=== PATIENT | male | born 1960 | race Caucasian/White ===

== ENCOUNTER 2018-01-05 06:11 | Emergency (ER) | payer OTHER ==
[~2018-01-05] VITALS: Ht 180.3 cm; Wt 131.8 kg
[~2018-01-05 06:11] MED LIST: AMLO-110 PO; ASPCH81 PO; BUPR-83 PO; CLON0.5T3 PO; CYAN100020 PO; PRLSR20 PO; SIMV80TA2 PO; TRAZ-119 PO; [UNRECOGNIZED DRUG - CODE] PO
[2018-01-05 06:14] VITALS: TEMP 36.5; Ht 180.3 cm; Wt 131.8 kg
[2018-01-05] MEDS ORDERED: ATOR-24 PO (06:28)
[2018-01-05] MEDS ORDERED: KETOROLAC TROMETHAMINE 60 MG/2 ML VIAL IM STA (07:02)
[2018-01-05] MEDS ORDERED: ONDA4TAB10 SL (07:08)
[2018-01-05] MEDS ORDERED: NAPR-1169 PO (07:08)
--- NOTE | 2018-01-05 07:09 | EMERGENCY ROOM VISIT NOTE ---
History Report prepared by Brian: Marylin Toth Under the Supervision of: Dr. Andrew Dunham D.O. First contact with patient: 06:39 Chief Complaint: FOOT PAIN Stated Complaint: POSSIBLE GOUT LEFT GREAT TOE History of Present Illness The patient is a 57 year old male who presents to the Emergency Room with complaints of constant throbbing left big toe pain beginning this morning at 3 am. The patient believes he has gout. The patient has a history of gout. He reports he has a gout attack about every 3-4 months. He rates his pain as a 6/ 10. The patient also notes nausea and a difficulty walking. The patient reports he [facility] an [facility] later this [facility]. Source of History: patient Onset: 3 am Position: toe(s) Symptom Intensity: 6/10 Quality: other (throbbing) Timing: constant Associated Symptoms: + nausea Review of Systems See HPI for pertinent positives & negatives. A total of 10 systems reviewed and were otherwise negative. Past Medical & Surgical Medical Problems: (1) Anxiety State Nos (2) Bilateral retinal detachment (3) Depressive Disorder Nec (4) Esophageal Reflux (5) Gout (6) Hypertension Nos (7) Personal History Of Urinary Calculi (8) Psoriasis Surgical Problems: (1) Previous back surgery Family History FH: cancer FH: diabetes mellitus FH: heart disease FH: hypertension Social History Smoking Status: Never Smoker Alcohol Use: none Marital Status: single Housing Status: lives alone Occupation Status: employed Current/Historical Medications Scheduled Amlodipine (Norvasc), 5 MG PO QAM Aspirin (Aspirin Tab-Chewable *), 1 TAB PO HS Atorvastatin (Lipitor), 40 MG PO DAILY Bupropion (Wellbutrin), 100 MG PO BID Cyanocobalamin (Vitamin B12), 1,000 MCG PO QAM Lisinopril/Hctz (Prinzide 25-20MG *), 1 TAB PO QAM Omeprazole (Prilosec), 20 MG PO QAM Trazodone Hcl (Desyrel), 50 MG PO HS Scheduled PRN Clonazepam (Klonopin), 0.5 MG PO BID PRN for Anxiety Allergies Coded Allergies: No Known Allergies (Unverified , 01/05/18) Physical Exam Vital Signs Date Time Temp Pulse Resp B/P (MAP) Pulse Ox O2 Delivery O2 Flow Rate FiO2 01/05/18 06:14 36.5 59 18 169/83 95 Room Air Physical Exam CONSTITUTIONAL/VITAL SIGNS: Reviewed / noted above. GENERAL: Non-toxic in appearance. INTEGUMENTARY: Warm, dry, and [place]. HEAD: Normocephalic. EYES: without scleral icterus or trauma. ENT/OROPHARYNX: clear and moist. LYMPHADENOPATHY/NECK: Is supple without lymphadenopathy or meningismus. RESPIRATORY: Lungs clear and equal. CARDIOVASCULAR: Regular rate and rhythm. GI/ABDOMEN: Soft and nontender. No organomegaly or pulsatile mass. No rebound or guarding. Normal bowel sounds. EXTREMITIES: Warm and well perfused. Redness and tenderness to the left, first MTP joint. BACK: No CVA tenderness. NEUROLOGICAL: Intact without focal deficits. PSYCHIATRIC: normal affect. MUSCULOSKELETAL: Normally developed with good muscle tone. Medical Decision & Procedures ED Course 0656: Previous medical records were reviewed. The patient was evaluated in room A4B. A complete history and physical examination was performed. 0704: Toradol 60mg IM & Zofran 4mg ODT Medical Decision Differential diagnoses include: gout, infection, trauma. This is a 57-year-old male who presents to the ED with a chief complaint of gout. The patient reports a history of this. He states that last night he developed discomfort in his left great toe. He did take some ibuprofen. The patient has no additional complaints. His exam reveals some redness and tenderness over the first MTP joint of the left foot. This is consistent with Protegra. No other abnormal findings. He was given Toradol IM and Zofran ODT as he had some nausea. He was felt to be stable for discharge on Naprosyn. He will follow-up with his PCP. Medication Reconcilliation Current Medication List: was personally reviewed by me Impression Primary Impression: Gout Scribe Attestation The scribe's documentation has been prepared under my direction and personally reviewed by me in its entirety. I confirm that the note above accurately reflects all work, treatment, procedures, and medical decision making performed by me. Departure Information Dispostion Home / Self-Care Prescriptions Ondasetron Odt (ZOFRAN ODT) 4 Mg Tab 4 MG SL Q6H for Nausea, #15 TAB Prov: Andrew Dunham D.O. 01/05/18 Naproxen (Naprosyn) 500 Mg Tab 500 MG PO BID, #20 TAB Prov: Andrew Dunham D.O. 01/05/18 Referrals No Doctor, Assigned (PCP) Patient Instructions My [facility] Additional Instructions Naprosyn as prescribed. Zofran: Allow one tablet to dissolve under the tongue every 6 hours as needed for nausea or vomiting. Follow-up with your doctor for recheck and additional therapy for chronic treatment of gout.
[2018-01-05] MEDS ORDERED: ONDANSETRON 4MG OD TAB PO ONE (07:15)
[2018-01-05 07:30] VITALS: BP 171/85; PULSE 70; O2SAT 96
== END 2018-01-05 07:30 | disposition home or self-care (01) ==
LOC: C.EDB 06:13 → C.EDA 07:30
DX: M10.9 Gout, unspecified (principal); R11.0 Nausea; I10 Essential (primary) hypertension; Z79.82 Long term (current) use of aspirin; F32.9 Major depressive disorder, single episode, unspecified

== ENCOUNTER 2024-04-14 11:06 | Inpatient (IN) ==
--- OUTSIDE RECORDS SUMMARY | 2024-04-14 11:13 | External Medical Summary | Summary of Care ---
Author Name Unknown Organization [facility] Address [address] [facility] [place] [address] Phone [phone] Care Team Providers Care Pump Stitcher Name Role Phone Aaliyah Toure PA-C Primary Care Provider [phone] Reason for Visit * Auth/Cert Specialty Diagnoses / Procedures Referred By Elizabeth t Referred To Contact Diagnoses History of colonic polyps History of colonic polyps [Z86.010] Procedures COLONOSCOPY, DIAGNOSTIC (RECTUM) COLONOSCOPY FLEXIBLE PROXIMAL DIAGNOSTIC Referral ID Status Reason Start Date Expiration Date Visits Re quested Visits Authorized [id number] Encounter Details Date Type Department Care Team (Latest Contact Info) Description 11/09/2023 8:56 AM EST - 11/09/2023 10:33 AM [facility] Hospital Encounter ENDO [facility], Endoscopy Room [facility] [address] [facility] [place] [id number] Tia Spence MD [address] [place] [address] [place] [address] Colonoscopy Discharge Disposition: Home - Self Care Allergies Active Allergy Reactions Criticality Noted Date Comments Lactose 03/31/2021 Sertraline Hcl Diarrhea 12/23/2008 Other reaction(s): Impotence documented as of this encounter (statuses as of 11/09/2023) Medications Medication Sig Dispensed Refills Start Date End Date Status OMEPRAZOLE 20 MG PO CPDR One pill by mouth once a day 1 hour before the first meal of the day 30 5 09/09/2008 Active AMLODIPINE BESYLATE 5 MG PO TABS Take 2 Tablets by mouth. 0 Active ASPIRIN 81 MG PO TABS one by mouth once a day 30 Tab 0 12/13/2011 Active Escitalopram Oxalate 20 MG Oral Tablet (LEXAPRO) Take 1 Tablet by mouth in the morning. 0 Active Lisinopril 20 MG Oral Tablet (PRINIVIL) Take 2 Tablets by mouth in the morning. 0 Active Atorvastatin Calcium 40 MG Oral Tablet (LIPITOR) Take 2 Tablets by mouth at bedtime. 0 Active Meclizine HCl 12.5 MG Oral Tablet (Antivert) Take 1 Tablet by mouth as needed. 0 Active BiPAP every night at bedtime. 0 Active buPROPion HCl ER (SR) 150 MG Oral Tablet Extended Release 12 Hour (Wellbutrin SR) Take 1 Tablet by mouth in the morning. 30 Tab 5 03/31/2021 Active Vitamin D3 25 MCG Oral Tablet Take by mouth at bedtime. 0 03/31/2021 Active Clobetasol Propionate 0.05 % External Ointment (Temovate) Apply topically to affected area 2 times a day. To affected area for up to two weeks. 30 g 1 03/31/2021 Active Ketoconazole 2 % External Shampoo (Nizoral) Apply topically to affected area every 3 days. Shampoo twice a week 120 mL 1 03/31/2021 Active Sildenafil Citrate 50 MG Oral Tablet Take 1 Tablet by mouth daily as needed for Erectile Dysfunction. 10 Tab 0 03/31/2021 Active traZODone HCl 100 MG Oral Tablet (Desyrel) Take 1 Tablet by mouth at bedtime. 60 Tab 5 03/31/2021 Active documented as of this encounter (statuses as of 11/09/2023) Active Problems Problem Noted Date Diagnosed Date Body mass index (BMI) of 40.0 to 44.9 in adult 0 04/20/2021 Overview: Per Obesity protocol - Per Obesity Protocol, #19 ICD-10 update of inactive diagnosis Retinal edema 02/06/2010 Retinal detachment with retinal defect 9 GERD (gastroesophageal reflux disease) Dyslipidemia, goal to be determined HTN, goal below 140/90 Sleep apnea documented as of this encounter (statuses as of 11/09/2023) Resolved Problems Problem Noted Date Diagnosed Date Resolved Date Severe obesity with body mas s index (BMI) of 35.0 to 39.9 with serious comorbidity 02/23/2010 Overview: Per Obesity Protocol, #19 ICD-10 update of inactive diagnosis documented as of this encounter (statuses as of 11/09/2023) Immunizations Name Administration Dates Next Due COVID-19 mRNA, LNP-s, No Pre serve, 2-Dose Series (Moderna) 02/12/2022,07/21/2021,10/07/2020, 0 20 Seasonal Influenza, Split, I IV3, With Preserve, Inj 06/16/2012 TDAP (age 10 and older)(Boostrix) 05/04/2022 TDAP (age 11 and older)(Adacel) 12/21/2010 documented as of this encounter Social History Tobacco Use Types Packs/Day Years Used Date Smoking Tobacco: Never Smokeless Tobacco: Never Alcohol Use Standard Drinks/Week Comments No 0 (1 standard drink = 0.6 oz pur e alcohol) maybe 1 drink a week at most Sex and Gender Information Value Date Recorded Sex Assigned at Not on file Gender Identity Not on file Sexual Orientation Not on file Job Start Date Occupation Industry Not on file Not on file Not on file documented as of this encounter Last Filed Vital Signs Vital Sign Reading Time Taken Comments Blood Pressure 130/88 11/09/2023 10:26 AM EST Pulse 57 11/09/2023 10:26 AM EST Temperature 36.1 C (97 F) 11/09/2023 10:26 AM EST Respiratory Rate 16 11/09/2023 10:26 AM EST Oxygen Saturation 97% 11/09/2023 10:26 AM EST Inhaled Oxygen Concentration - - Weight 134.7 kg (297 lb) 11/09/2023 9:22 AM EST Height 180.3 cm (5' 11") 11/09/2023 9:22 AM EST Body Mass Index 41.42 11/09/2023 9:22 AM EST documented in this encounter H&P Notes * Tia Spence MD - 11/09/2023 9:41 AM EST Endoscopy Pre-Procedure Assessment Name: Song Harding Date: 11/09/2023 Time: 9:41 AM Procedure(s): Colonoscopy; with Indication(s) of colon polyp surveillance Endoscopy Pre-Procedure Assessment: Prior to the procedure, the patient is identified. The patient's history, medications and allergieshave been reviewed. The patient is competent. The risks and benefits of the proposed procedure and the planned sedation have been discussed with the patient. All questions have been answered and informed consent for the procedure has been obtained. Prior to Admission medications Medication Sig Last Dose Discont. buPROPion HCl ER (SR) 150 MG Oral Tablet Extended Release 12 Hour (Wellbutrin SR) Take 1 Tablet by mouth in the morning. 11/08/2023 Clobetasol Propionate 0.05 % External Ointment (Temovate) Apply topically to affected area 2 times a day. To affected area for up to two weeks. 11/08/2023 Ketoconazole 2 % External Shampoo (Nizoral) Apply topically to affected area every 3 days. Shampoo twice a week 11/08/2023 Sildenafil Citrate 50 MG Oral Tablet Take 1 Tablet by mouth daily as needed for Erectile Dysfunction. Unknown traZODone HCl 100 MG Oral Tablet (Desyrel) Take 1 Tablet by mouth at bedtime. 11/08/2023 Vitamin D3 25 MCG Oral Tablet Take by mouth at bedtime. 11/08/2023 BiPAP every night at bedtime. 11/08/2023 Atorvastatin Calcium 40 MG Oral Tablet (LIPITOR) Take 2 Tablets by mouth at bedtime. 11/08/2023 Escitalopram Oxalate 20 MG Oral Tablet (LEXAPRO) Take 1 Tablet by mouth in the morning. 11/08/2023 Lisinopril 20 MG Oral Tablet (PRINIVIL) Take 2 Tablets by mouth in the morning. 11/08/2023 ASPIRIN 81 MG PO TABS one by mouth once a day 11/08/2023 AMLODIPINE BESYLATE 5 MG PO TABS Take 2 Tablets by mouth. 11/09/2023 OMEPRAZOLE 20 MG PO CPDR One pill by mouth once a day 1 hour before the first meal of the day 11/09/2023 Meclizine HCl 12.5 MG Oral Tablet (Antivert) Take 1 Tablet by mouth as needed. Patient not taking: Reported on 11/01/2023 Not Taking Review of patient's allergies indicates: Allergen Reactions Lactose Sertraline Hcl Diarrhea Other reaction(s): Impotence BP 151/82 | Pulse 60 | Temp 37.1 C (98.8 F) (Tympanic) | Resp 16 | Ht 1.803 m (5' 11") | Wt 134.7 kg (297 lb) | SpO2 97% | BMI 41.42 kg/m | BSA 2.6 m Physical Exam: Mental Status Examination: alert and oriented. Resp: normal CV: slight bradycardia ASA Grade: II - A patient with mild systemic disease. Abdomen: soft obese large This patient has undergone a preprocedural evaluation. A determination has been made to proceed with the planned procedure under [facility] procedural guidelines and the [facility] Non-Emergent, Elective Medical Services and Treatment Recommendations (published on 12-18-19). The community and hospital prevalence of COVID-19 has been discussed as well as this patient's specific risks associated with SARS-CoV-19 infection. Based upon the clinical acuity and patient-specific care considerations, this procedure is deemed a Tier III - Procedures at little or no risk for clinical deterioration (example - cosmetic). After reviewing the risks and benefits, the patient is deemed in satisfactory condition to undergo the procedure. The anesthesia plan is to use general anesthesia. Tia Spence MD 11/09/2023 documented in this encounter Procedure Notes * Aaliyah Toure PA-C - 11/09/2023 9:40 AM ESTAssociated Order(s): COLONOSCOPY [facility] Patient Name: Song Harding Procedure Date: 11/09/2023 9:40 AM Date of : 1960 Admit Type: Outpatient Note Status: Finalized Date of : 1960 Admit Type: Outpatient Age: 63 Room: [facility] 3 Gender: Male Note Status: Finalized Procedure: Colonoscopy Indications: High risk colon cancer surveillance: personal history of colon polyps Providers: Tia Spence MD, David Fong RN, Renetta Horne CRNA Patient Profile: Last Colonoscopy: September 2020. Referring MD: FANI Greenwood Medicines: See the Anesthesia note for documentation of the administered medications Complications: No immediate complications. Procedure: Pre-Anesthesia Assessment: - Patient identification and proposed procedure were verified prior to the procedure by the physician, the nurse and the anesthesiologist. The procedure was verified in the pre-procedure area. - Prior to the procedure, a History and Physical was performed, and patient medications, allergies and sensitivities were reviewed. The patient's tolerance of previous anesthesia was reviewed. - The risks and benefits of the procedure and the sedation options and risks were discussed with the patient. All questions were answered and informed consent was obtained. - The medication list for this patient has been reviewed prior to the procedure and has been determined that the patient may proceed with the planned study. Any medication changes made as a result of the findings of this procedure have been discussed with the patient and/or customer support representative at the time of discharge from the department. - After I obtained informed consent, the scope was passed under direct vision. All instruments were visually inspected immediately before and after removal from the patient to ensure they are fully intact. Throughout the procedure, the patient's blood pressure, pulse, and oxygen saturations were monitored continuously. The [id number] Colonoscope ([id number]) was introduced through the anus and advanced to the terminal ileum. The colonoscopy was performed without difficulty. The patient tolerated the procedure well. The quality of the bowel preparation was adequate to identify polyps 6 mm and larger in size. Findings & Specimens: The examined terminal ileum appeared normal. The examined colon appeared normal. A 2 mm polyp was found in the ascending colon. The polyp was sessile. The polyp was removed with a cold biopsy forceps. Resection and retrieval were complete. The pathology specimen was placed into Bottle Number 1. A 6 mm polyp was found in the ascending colon. The polyp was sessile. The polyp was removed with a cold snare. Resection and retrieval were complete. The pathology specimen was placed into Bottle Number 1. Verification of patient identification for the specimen was done by the physician and nurse using the patient's name and medical record number. Internal hemorrhoids were found during retroflexion. The exam was otherwise without abnormality on direct and retroflexion views. Impression: - The examined portion of the terminal ileum appeared normal. - The examined colon appeared normal. - One 2 mm polyp in the ascending colon, removed with a cold biopsy forceps. Resected and retrieved. - One 6 mm polyp in the ascending colon, removed with a cold snare. Resected and retrieved. - Internal hemorrhoids. - The examination was otherwise normal on direct and retroflexion views. Recommendation: - Await pathology results. - Repeat colonoscopy for surveillance based on pathology results. Tia Spence MD 11/09/2023 10:11:05 AM This report has been signed electronically. documented in this encounter Nursing Notes * aMrisa Lentz RN - 11/09/2023 10:30 AM EST Patient is alert, pain free, passing flatus and tolerating po fluids prior to discharge. Patient has been visited by Dr. Spence. Patient has received and demonstrates understanding of discharge instructions. Patient ambulated to private auto accompanied by endo staff. * Marisa Lentz RN - 11/09/2023 10:20 AM EST Patient tolerated anesthesia and procedure well. Tolerating po fluids. * Marisa Lentz RN - 11/09/2023 10:14 AM EST Patient transferred to post endo s/p colonoscopy. Patient arousaable Respirations are even and unlabored on room air. Abdomen soft and non distended. Vital signs stable. * David Fong RN - 11/09/2023 10:09 AM EST See anesthesia record for medication administered during procedure. David Fong RN Specimen(s) and location(s) verified with physician post procedure 10:09 AM David Fong RN Pre cleaning of scope at the bedside started by civil engineering technician. Mid abdominal pressure given per Dr. Spence to assist with scope advancement. Pt tolerated well * Sharon Rai RN - 11/09/2023 9:25 AM EST The following pt discharge instructions reviewed with pt prior to prodedure: No driving today. No alcohol today. No signing of legal documents. Rest as much as possible today and can return to normal activities tomorrow. No operating any heavy equipment today. Diet as tolerated. Pt verbalized understanding. documented in this encounter Plan of Treatment Upcoming Encounters Date Type Department Care Team (Late st Contact Info) Description 05/09/2024 10:00 AM EDT Office Visit [facility] [address] [place] [address] Aaliyah Toure PA-C [address] [place] [address] Pending Results Name Type Priority Associated Diagnoses Date /Time SURGICAL PATHOLOGY Pathology Routine History of colonic polyps 11/09/2023 10:10 AM EST Scheduled Orders Name Type Priority Associated Diagnoses Orde r Schedule SURGICAL PATHOLOGY Pathology Routine History of colonic polyps Release Upon Ordering for 1 Occurrences starting 11/09/2023, 1 completed Scheduled Procedures Name Priority Associated Diagnoses Date/Ti me COLONOSCOPY FLEXIBLE PROXIMAL DIAGNOSTIC Recall History of colonic polyps 11/09/2023 9:52 AM EST Health Maintenance Due Date Last Done Comments Depression Screening 1973 HIV Screening 1976 Albumin/Creatinine Ratio 1979 Hepatitis B (2 of 3 - Hep B Twinrix 3-dose series) 03/12/2005 02/12/2005 COVID-19 Vaccine ( season) 2023 02/12/2022, 07/21/2021, 10/07/2020, Additional history exists Influenza Vaccine (FLU shot) (#1) 2023 06/12/2018, 06/28/2016, 06/13/2015, Additional history exists GFR 05/05/2024 05/05/2023, 08/12, 08/27/2020, Additional history exists Diabetes Screening 05/05/2026 05/05/2023, 0 12/13/2011, 04/15/2009 (Done elsewhere) COLONOSCOPY-EVERY 3 YRS AGES 18-100 11/09/2026 11/09/2023, 10/01/2020, 10/01/2020, Additional history exists DTaP,Tdap,and Td Vaccines (3 - Td or Tdap) 05/04/2032 05/04/2022, 12/21/2010 MENINGOCOCCAL (MENACTRA/MENVEO) Aged Out 04/20/2003 No longer eligible based on patient's age to complete this topic Zoster Vaccines Completed 12/06/2019, 06/07/2019 GARDASIL-HPV IMMUNIZATION SERIES Aged Out No longer eligible based on patient's age to complete this topic Pneumococcal Vaccine: Pediatrics (0 to 5 Years) and At-Risk Patients (6 to 64 Years) Aged Out No longer eligible based on patient's age to complete this topic documented as of this encounter Medical Devices Not on filedocumented as of this encounter Procedures Procedure Name Priority Date/Time Associated Diagnosis Comments COLONOSCOPY 11/09/2023 9:40 AM EST documented in this encounter Results * COLONOSCOPY (11/09/2023 9:40 AM EST) 11/09/2023 9:40 AM EST Narrative Procedure Note Aaliyah Toure PA-C - 11/09/2023 9:40 AM EST [facility] Patient Name: Song Harding Procedure Date: 11/09/2023 9:40 AM Date of : 1960 Admit Type: Outpatient Note Status:Finalized Date of : 1960 Admit Type: Outpatient Age: 63 Room: [facility] 3 Gender: Male Note Status: Finalized Procedure: Colonoscopy Indications: High risk colon cancer surveillance: personalhistory of colon polyps Providers: Tia Spence MD, David Fong, RN, Renetta Horne CRNA Patient Profile: Last Colonoscopy: September 2020. Referring MD: FANI Greenwood Medicines: See the Anesthesia note for documentation of theadministered medications Complications: No immediate complications. Procedure: Pre-Anesthesia Assessment: - Patient identification and proposed procedurewere verified prior to the procedure by the physician, the nurse and theanesthesiologist. The procedure was verified in the pre-procedure area. - Prior to the procedure, a History and Physicalwas performed, and patient medications, allergies and sensitivities werereviewed. The patient's tolerance of previous anesthesia was reviewed. - The risks and benefits of the procedure and thesedation options and risks were discussed with the patient. All questions wereanswered and informed consent was obtained. - The medication list for this patient has beenreviewed prior to the procedure and has been determined that the patient may proceed with the plannedstudy. Any medication changes made as a result of the findings of this procedure have beendiscussed with the patient and/or customer support representative [facility] - After I obtained informed consent, the scope waspassed under direct vision. All instruments were visually inspected immediatelybefore and after removal from the patient to ensure they are fully intact. Throughout the procedure, the patient's bloodpressure, pulse, and oxygen saturations were monitored continuously. The [id number] ([id number]) was introduced through the anus and advanced to the terminalileum. The colonoscopy was performed without difficulty. The patient tolerated theprocedure well. The quality of the bowel preparation was adequate to identify polyps 6mm and larger in size. Findings & Specimens: The examined terminal ileum appeared normal. The examined colon appeared normal. A 2 mm polyp was found in the ascending colon. The polyp was sessile.The polyp was removed with a cold biopsy forceps. Resection and retrieval were complete. The pathologyspecimen was placed into Bottle Number 1. A 6 mm polyp was found in the ascending colon. The polyp was sessile.The polyp was removed with a cold snare. Resection and retrieval were complete. The pathology specimenwas placed into Bottle Number 1. Verification of patient identification for the specimen was done bythe physician and nurse using the patient's name and medical record number. Internal hemorrhoids were found during retroflexion. The exam was otherwise without abnormality on direct and retroflexionviews. Impression: - The examined portion of the terminal ileumappeared normal. - The examined colon appeared normal. - One 2 mm polyp in the ascending colon, removedwith a cold biopsy forceps. Resected and retrieved. - One 6 mm polyp in the ascending colon, removedwith a cold snare. Resected and retrieved. - Internal hemorrhoids. - The examination was otherwise normal on directand retroflexion views. Recommendation: - Await pathology results. - Repeat colonoscopy for surveillance based onpathology results. Tia Spence MD 11/09/2023 10:11:05 AM This report has been signed electronically. Aaliyah Toure PA-C [facility] documented in this encounter Visit Diagnoses Diagnosis History of colonic polyps Personal history of colonic polyps documented in this encounter Administered Medications Inactive Administered Medications - up to 3 most recent administrations Medication Order MAR Action Action Date Dose Rate Site isolyte-S pH 7.4 infusion Intravenous, at 100 mL/hr, Plasma-LYTE 148, isolyte-S, and isolyte-S pH 7.4 are considered equivalent - including for MAR barcode scanning., CONTINUOUS, Starting on Tue11/09/23 at 0945, Until Tue11/09/23 at 1440, Pre-Op Restarted 11/09/2023 10:16 AM EST Continue from Pre-Op 11/09/2023 9:49 AM EST 100 mL/hr New Bag 11/09/2023 9:31 AM EST 100 mL/hr documented in this encounter Active and Recently Administered Medications Times are shown in EST. Continuous Medication Order 11/07/2023 11/08/2023 11/09/2023 isolyte-S pH 7.4 infusion Intravenous, at 100 mL/hr, Plasma-LYTE 148, isolyte-S, and isolyte-S pH 7.4 are considered equivalent - including for MAR barcode scanning., CONTINUOUS, Starting on Tue11/09/23 at 0945, Until Tue11/09/23 at 1440, Pre-Op 0931 (New Bag - Prov ider: Sharon Rai RN)0949 (Continue from Pre-Op - Provider: Renetta Horne CRNA)1015 (Paused - Provider: Renetta Horne CRNA - Comment: Switch to gravity)1016 (Restarted - Provider: Renetta Horne CRNA) documented in this encounter Care Teams Pump Stitcher Relationship Specialty Start Date End Date Aaliyah Toure PA-C [address] [facility] [place] [address] PCP - General Physician Program Architect 05/04/22 documented as of this encounter
[2024-04-14] MEDS: OPTIRAY 320 125ml IV ONE (11:28)
--- NOTE | 2024-04-14 11:29 | Emergency Department Note ---
Impression & Plan Ataxia, Acute effusion of right ear ED Provider Note Name: PRETTY MATTHEWS Age: 64 Sex: Male Arrives Via: Walk-In Informant: Patient ED Provider: Jonah Holliday MD Chief Complaint: Dizziness Impression: As per impressions above Medical Decision Making: Pleasant 64-year-old gentleman with a history of hypertension and dyslipidemia on 81 mg aspirin daily arrives for evaluation of acute onset of dizziness at roughly 10 AM this morning. My bedside evaluation reveals patient with difficulty with ambulation, slight lisp, questionable left facial droop. Stroke alert initiated. Upon return further discussions with staff known well and patient notes lisp seems actually about baseline rather than worse than usual. The left facial droop seems more his speech approach as opposed to any actual weakness. CT of the head without contrast and angiography were obtained which were unremarkable. I did review the case with stroke neurologist who evaluated patient via telemetry video and agree that avoiding TNKase reasonable in this patient and have discussed pros cons with patient who also agrees avoiding TNKase. At advice of neurologist will bring in for stroke rule out though it seems very likely at this point that this is probably a peripheral atypical vertigo. Bedside will give full dose aspirin while awaiting further neuroimaging evaluation. Blood pressure stable throughout ED care. Patient comfortable with this plan. Triage/Nursing Notes reviewed by Me Differential:Stroke, dissection, intracranial hemorrhage, mass effect, fusion, vertigo, or any other pathologies considered Vital Signs: reviewed and remarkable for no significant abnormalities Interventions: Aspirin 324 mg p.o. Labs:ED labs Reviewed by me and remarkable for no significant abnormalities Imaging:CT head without contrast as per my conformal irritation no intracranial hemorrhage or mass effect appreciated. Confirmed by radiologist. CT of the head and neck with angiography. No acute dissection, occlusion or narrowing as per radiologist. EKG:As per my interpretation. Indication strokelike symptoms. Normal sinus rhythm at 61 bpm. QTc 442. There is no ectopy or ischemia. There are no previous EKGs available Cardiac/Tele Monitoring: Cardiac Monitoring: An Order was placed for continuous cardiac monitoring. The monitor shows a rate of 60 with a normal sinus rhythm. Consults:Dr Bang of [facility] neurology evaluated patient emergently via telemedicine video conference. After discussing with patient and myself he feels TNKase should not be given and counseled patient surrounding this who agrees. Discussed with [facility] hospitalist will bring in for stroke evaluation. Plan: Disposition:Hospitalization. Condition: Good History of Present Illness: 64-year-old gentleman arrives for evaluation of dizziness. Patient notes earlier this morning he had an episode of feeling a bit dizzy but did not think much of it as it resolved. At the same time he had some pressure in his right ear. Patient states that it went away and then around 10 AM he was walking out with a house when he developed sudden onset dizziness again and felt like he could not walk straight. He just comes to the ER for further evaluation. Denies any facial weakness, slurred speech, headache, leg weakness, arm weakness, falls, trauma, injuries or other concerning signs or symptoms. She patient is on 81 mg aspirin daily for protection given his history of hypertension. He has no history of stroke, CAD nor is there such in his family. No history of stroke. He did have an episode of vertigo about 4 years ago but does not have the spinning that he had with them. Past Medical History:Hypertension, dyslipidemia, anxiety, GERD Home Medications:See Below Allergies:NKDA Vitals:Blood Pressure: 146/77, Pulse 68, RR 18, T 36.2C, O2 95% on RA Physical Exam: GENERAL: Patient is anxious appearing and in minimal distress. HEAD: AT/NC EAR: Right TM effusion, left TM unremarkable RESPIRATORY: No dyspnea. Clear to auscultation and equal bilaterally. CARDIOVASCULAR: Regular rate and rhythm.No murmur appreciated. GASTROINTESTINAL: Abdomen soft, non-tender, no peritonitis. EXTREMITIES: Normal motion all extremities, no cyanosis, no edema. NEUROLOGIC: Alert and oriented. Patient with mildly slurred speech questionable left facial droop. No overt weakness in arms or legs. No ataxia finger-nose [id number]. Patient is having difficulty with walking straight and leans to the right. SKIN: No rash, no jaundice, no diaphoresis. PSYCH: Appropriate GCS: 15 ED Course: Times/Reassessments: Patient stable throughout. He is feeling comfortable. Still with a bit of similar dizziness. Critical Care: I have personally spent 35 minutes of critical care time in the direct management of this patient. Reviewed strokelike symptoms regarding stroke alert and rapid decision and consultation surrounding possible thrombolytic use. This was a life/limb threatening event. This 35 minutes is in excess of all separately billable procedures. Jonah Holliday MD Past Med/Surg History Problem List (Updated 04/14/24 @ 16:20 by Jonah Holliday MD) Acute effusion of right ear (Acute) Ataxia (Acute) Impaired ambulation Pressure sensation in right ear History of hepatitis B Fall down steps (Acute) Facial abrasion (Acute) Work related injury (Acute) Family History Other Family history non-contributory Social History Smoking Status: Never smoker Second Hand Exposure: No; Do You Dip or Chew Tobacco: No; Hx Alcohol Use: Yes Alcohol type: beer Hx Substance Use: No Preferred Language: Gabonese Communication Ability: Effective Inseamer Required: No Beliefs That Will Affect Care: None marital status: Current Living Situation: Alone current occupational status: employed Other Information That Helps Us Care for You: No Feels Safe at Home: Yes Safety Concerns: Feels Safe At This Time Assistive Devices: None Allergies Allergies Allergy/AdvReac Type Severity Reaction Status Date / Time No Known Allergies Allergy Verified 03/09/20 06:51 Home Meds Home Medications Medication Instructions Recorded Confirmed amlodipine 5 mg tablet 5 mg PO DAILY 11/06/18 04/14/24 aspirin 81 mg chewable tablet 81 mg PO DAILY 11/06/18 04/14/24 atorvastatin 40 mg tablet 40 mg PO QPM 11/06/18 04/14/24 lisinopril 10 mg tablet 10 mg PO DAILY 11/06/18 04/14/24 omeprazole 20 mg capsule,delayed 20 mg PO DAILY 11/06/18 04/14/24 release trazodone 50 mg tablet 150 mg PO HS 11/06/18 04/14/24 escitalopram oxalate 10 mg tablet 10 mg PO DAILY 03/09/20 04/14/24 (Lexapro) ketoconazole 2 % shampoo 2 % topical DIRECTED 03/09/20 04/14/24 Wellbutrin 100 mg PO DAILY 04/14/24 04/14/24 Results & Data (ED) Vital Signs Vital Signs - 24 hr 04/14/24 11:11 04/14/24 11:45 04/14/24 11:48 Temperature 36.2 C L Temperature Source Temporal Artery Scan Pulse Rate 68 66 Pulse Rate from SpO2 Sensor 66 Respiratory Rate 18 20 Blood Pressure 146/77 H 163/110 H 184/110 H Blood Pressure Mean 100 139 136 Pulse Oximetry 95 98 Oxygen Delivery Method Room Air Room Air Sepsis Recent Fever Within 48 Hours No Sepsis New/Unexplained Change in Mental Status No Sepsis Action Taken by Nursing No Action Required 04/14/24 11:49 04/14/24 11:54 04/14/24 12:03 Temperature Temperature Source Pulse Rate 64 63 64 Pulse Rate from SpO2 Sensor 63 64 Respiratory Rate 20 20 Blood Pressure 171/101 H Blood Pressure Mean 116 Pulse Oximetry 96 97 Oxygen Delivery Method Room Air Room Air Sepsis Recent Fever Within 48 Hours Sepsis New/Unexplained Change in Mental Status Sepsis Action Taken by Nursing Laboratory Data 04/14/24 11:28 04/14/24 11:28 Lab Results 04/14/24 Range/Units 11:28 WBC 7.80 (4.8-10.8) K/ul RBC 5.13 (4.70-6.10) M/uL Hgb 14.6 (14.0-18.0) g/dl Hct 44.2 (42.0-52.0) % MCV 86.2 (80.0-100.0) fL MCH 28.5 (25.0-34.0) pg MCHC 33.0 (32.0-36.0) g/dL RDW Std Deviation 41.0 (36.4-46.3) fL RDW Coeff of Tripp 13.2 (11.5-14.5) % Plt Count 224 (130-400) K/uL MPV 11.4 (9.4-12.4) fL Immature Gran % (Auto) 0.3 % Neut % (Auto) 68.5 % Lymph % (Auto) 18.6 % Jerauld % (Auto) 11.4 % Eos % (Auto) 0.8 % Baso % (Auto) 0.4 % Neut # (Auto) 5.35 (1.40-6.50) K/uL Lymph # (Auto) 1.45 (1.20-3.40) K/uL J[place]uld # (Auto) 0.89 H (0.11-0.59) K/uL Eos # (Auto) 0.06 (0.00-0.50) K/uL Baso # (Auto) 0.03 (0.00-0.20) K/uL Immature Gran # (Auto) 0.02 (0.01-0.20) K/uL PT 11.0 (9.0-12.0) Seconds INR 1.0 (0.9-1.1) APTT 28 (21-31) Seconds PTT Ratio 1.0 Sodium 141 (136-145) mmol/L Potassium 4.0 (3.5-5.1) mmol/L Chloride 108 H (98-107) mmol/L Carbon Dioxide 26 (21-32) mmol/L Anion Gap 7 (3-11) BUN 14 (6-23) mg/dl Creatinine 0.94 (0.6-1.4) mg/dl Est Cr Clr Drug Dosing 112.4 ml/min Est GFR ( Amer) 99.6 ml/min Est GFR (Non-Af Amer) 85.9 ml/min BUN/Creatinine Ratio 14.9 (10-20) Glucose 104 H (70-99(Fasting)) mg/dl Calcium 9.3 (8.6-10.3) mg/dl Magnesium 2.1 (1.7-2.4) mg/dl Total Bilirubin 0.8 (0.2-1.0) mg/dl AST 17 (13-39) U/L ALT 24 (7-52) U/L Alkaline Phosphatase 93 (34-104) U/L Troponin I High Sens 4.5 (0-20) pg/ml Total Protein 7.2 (6.0-8.3) gm/dl Albumin 4.7 (3.4-5.0) gm/dl Globulin 2.5 (2.5-4.0) gm/dl Albumin/Globulin Ratio 1.9 (0.9-2) Administered Medications Enoxaparin Sodium (Enoxaparin Inj 40 Mg/0.4 Ml Syr) 40 mg SQ Q12H SANJUANA Stop: 05/14/24 14:12 Last Admin: 04/14/24 15:25 Dose: 40 mg Documented By: OSMANID Discontinued Medications Aspirin (Aspirin 81 Mg Chew) 324 mg PO NOW STA Stop: 04/14/24 12:56 Last Admin: 04/14/24 14:09 Dose: 324 mg Documented By: NA Ioversol (Optiray 320 125ml) 112 ml IV ONCE ONE Stop: 04/14/24 11:29 Last Admin: 04/14/24 11:28 Dose: 112 ml Documented By: Imaging Data Radiologist's Impression: Head CT 04/14/24 11:25 CT head/brain wo con CLINICAL HISTORY: neuro deficit, acute stroke suspected Technique: Contiguous axial CT images of the head were acquired from the base of the skull to the vertex without intravenous contrast administration. Images were viewed in brain, subdural and bone windows. Automated dose lowering techniques and/or adjustment according to patient size were utilized for this exam. Comparison: None available at the time of this dictation. Findings: The ventricles, basal cisterns, and cerebral sulci are normal. There is no acute intracranial hemorrhage or evidence of acute territorial infarction. Neither mass effect, shift of the midline structures, nor abnormal extra-axial fluid collections are shown. Imaged portions of the paranasal sinuses and mastoid air cells are clear. The orbits appear normal. There are no acute fractures of the calvaria or scalp swelling. Impression: No acute intracranial hemorrhage, no evidence of acute territorial infarction or other acute intracranial disease process. ACT 112: Negative or not required by law. Electronically signed by: Mateusz Espinoza M.D. 04/14/2024 11:49 AM Head CTA 04/14/24 11:25 CT angio neck with con, CT angio head w con CLINICAL HISTORY: neuro deficit, acute stroke suspected TECHNIQUE: CT angiography of the head and neck was performed following intravenous administration of iodinated contrast. Coronal and sagittal MIPS were obtained from the axial data set and were submitted for review. Automated dose lowering techniques and/or adjustment according to patient size were utilized for this examination. All measurements were calculated based on NASCET criteria. CT DOSE: 1406.02 mGy.cm Comparison: None available at the time of this dictation. FINDINGS: Lungs and soft tissues are unremarkable. CTA Neck: A 3 vessel aortic arch is shown. There is no significant atherosclerotic plaque in the aortic arch or the origins of the innominate, left common carotid, and left subclavian arteries. The common carotid, external carotid, cervical segments of the internal carotid arteries, and the cervical segments of the vertebral arteries are patent without hemodynamically significant stenosis. The right vertebral artery is dominant. CTA Head: The anterior and posterior cerebral circulations are patent. origin of the bilateral posterior cerebral arteries noted. IMPRESSION: 1. No occlusion, hemodynamically significant stenosis, or dissection in the major cervical arteries. 2. No occlusion, hemodynamically significant stenosis, aneurysm, dissection, or arteriovenous malformation in the major intracranial arteries. Assessment of stenosis of the internal carotid arteries is based on NASCET criteria. ACT 112: Negative or not required by law. Electronically signed by: Mateusz Espinoza M.D. 04/14/2024 11:51 AM Neck CTA 04/14/24 11:25 CT angio neck with con, CT angio head w con CLINICAL HISTORY: neuro deficit, acute stroke suspected TECHNIQUE: CT angiography of the head and neck was performed following intravenous administration of iodinated contrast. Coronal and sagittal MIPS were obtained from the axial data set and were submitted for review. Automated dose lowering techniques and/or adjustment according to patient size were utilized for this examination. All measurements were calculated based on NASCET criteria. CT DOSE: 1406.02 mGy.cm Comparison: None available at the time of this dictation. FINDINGS: Lungs and soft tissues are unremarkable. CTA Neck: A 3 vessel aortic arch is shown. There is no significant atherosclerotic plaque in the aortic arch or the origins of the innominate, left common carotid, and left subclavian arteries. The common carotid, external carotid, cervical segments of the internal carotid arteries, and the cervical segments of the vertebral arteries are patent without hemodynamically significant stenosis. The right vertebral artery is dominant. CTA Head: The anterior and posterior cerebral circulations are patent. origin of the bilateral posterior cerebral arteries noted. IMPRESSION: 1. No occlusion, hemodynamically significant stenosis, or dissection in the major cervical arteries. 2. No occlusion, hemodynamically significant stenosis, aneurysm, dissection, or arteriovenous malformation in the major intracranial arteries. Assessment of stenosis of the internal carotid arteries is based on NASCET criteria. ACT 112: Negative or not required by law. Electronically signed by: Mateusz Espinoza M.D. 04/14/2024 11:51 AM Discharge Plan Visit Data Chief Complaint: Vertigo Stated Complaint: VERTIGO ED Provider: Jonah Holliday Discharge Problem: Ataxia, Acute effusion of right ear Discharge Instructions Interventions: ED Discharge Assessment Last Done: 04/14/24 14:14
--- NOTE | 2024-04-14 11:50 | CT Scan Report ---
CT head/brain wo con CLINICAL HISTORY: neuro deficit, acute stroke suspected Technique: Contiguous axial CT images of the head were acquired from the base of the skull to the antonella gonzalo without intravenous contrast administration. Images were viewed in brain, subdural and [facility]. Automated dose lowering techniques and/or adjustment according to patient size were utilized for this exam. Comparison: None available at the time of this dictation. Findings: The ventricles, basal cisterns, and cerebral sulci are normal. There is no acute intracranial hemorrh age or evidence of acute territorial infarction. Neither mass effect, shift of the midline structures , nor abnormal extra-axial fluid collections are shown. Imaged portions of the paranasal sinuses and mastoid air cells are clear. The orbits appear normal. There are no acute fractures of the calvaria or scalp swelling. Impression: No acute intracranial hemorrhage, no evidence of acute territorial infarction or other acute intracra nial disease process. ACT 112: Negative or not required by law. Electronically signed by: Mateusz Espinoza M.D. 04/14/2024 11:49 AM
--- NOTE | 2024-04-14 11:52 | CT Scan Report ---
CT angio neck with con, CT angio head w con CLINICAL HISTORY: neuro deficit, acute stroke suspected TECHNIQUE: CT angiography of the head and neck was performed following intravenous administration of iodinated contrast. Coronal and sagittal MIPS were obtained from the axial data set and were submitte d for review. Automated dose lowering techniques and/or adjustment according to patient size were ut ilized for this examination. All measurements were calculated based on NASCET criteria. CT DOSE: 1406.02 mGy.cm Comparison: None available at the time of this dictation. FINDINGS: Lungs and soft tissues are unremarkable. CTA Neck: A 3 vessel aortic arch is shown. There is no significant atherosclerotic plaque in the aor tic arch or the origins of the innominate, left common carotid, and left subclavian arteries. The co mmon carotid, external carotid, cervical segments of the internal carotid arteries, and the cervical segments of the vertebral arteries are patent without hemodynamically significant stenosis. The right vertebral artery is dominant. CTA Head: The anterior and posterior cerebral circulations are patent. origin of the bilateral posterior cerebral arteries noted. IMPRESSION: 1. No occlusion, hemodynamically significant stenosis, or dissection in the major cervical arteries. 2. No occlusion, hemodynamically significant stenosis, aneurysm, dissection, or arteriovenous malfor mation in the major intracranial arteries. Assessment of stenosis of the internal carotid arteries is based on NASCET criteria. ACT 112: Negative or not required by law. Electronically signed by: Mateusz Espinoza M.D. 04/14/2024 11:51 AM
[2024-04-14 12:07] LABS: Albumin Globulin Ratio 1.9 (0.9-2); Albumin Level 4.7 gm/dl (3.4-5.0); BUN Creatinine Ratio 14.9 (10-20); Bilirubin,Total 0.8 mg/dl (0.2-1.0); Calcium 9.3 mg/dl (8.6-10.3); Creatinine Clr Calc Pharmacy 112.4 ml/min; Est GFR (African American) 99.6 ml/min; Est GFR (Non-African American) 85.9 ml/min; Globulin 2.5 gm/dl (2.5-4.0); Magnesium 2.1 mg/dl (1.7-2.4); Total Protein 7.2 gm/dl (6.0-8.3)
[2024-04-14 12:10] LABS: Basophils # (auto) 0.03 K/uL (0.00-0.20); Basophils % (auto) 0.4 %; Eosinophils # (auto) 0.06 K/uL (0.00-0.50); Eosinophils % (auto) 0.8 %; Hematocrit (blood only) 44.2 % (42.0-52.0); Hemoglobin 14.6 g/dl (14.0-18.0); Immature Granulocytes # (auto) 0.02 K/uL (0.01-0.20); Immature Granulocytes % (auto) 0.3 %; Lymphocytes # (auto) 1.45 K/uL (1.20-3.40); Lymphocytes % (auto) 18.6 %; Mean Corpuscular Hemoglobin 28.5 pg (25.0-34.0); Mean Corpuscular Volume 86.2 fL (80.0-100.0); Mean Platelet Volume 11.4 fL (9.4-12.4); Monocytes # (auto) 0.89 K/uL (0.11-0.59); Monocytes % (auto) 11.4 %; Neutrophils # (auto) 5.35 K/uL (1.40-6.50); Neutrophils % (auto) 68.5 %; Platelet Count 224 K/uL (130-400); RDW Coefficient of Variation 13.2 % (11.5-14.5); Red Blood Count 5.13 M/uL (4.70-6.10)
[2024-04-14 12:13] LABS: Troponin I High Sensitivity 4.5 pg/ml (0-20)
[2024-04-14 12:30] LABS: Partial Thromboplastin Time 28 Seconds (21-31)
--- NOTE | 2024-04-14 12:51 | History & Physical Report ---
Date of Service April 14, 2024 Assessment & Plan (1) Impaired ambulation: Plan Song Harding is a 64y/o M with PMHx of dyslipidemia, HTN, GERD, history of hepatitis B, sleep apnea, gout, PTSD, history of retinal detachment of both eyes and other problems listed below who presented to the ED for evaluation secondary to dizziness and inability to walk straight. Impaired Ambulation *Stroke Rule-Out* Pt presenting w/ difficulty walking, dizziness and right ear pressure. Patient w/ significant difficulty walking straight in the ED - stroke alert was ultimately called. Telestroke doc advised giving full dose of aspirin; Therefore, patient was loaded with aspirin in the ED. Lab work rather unremarkable; Head CT negative for any acute findings. Head and neck CTA imaging were both negative for any acute findings as well. Brain MRI ordered and pending - follow results. Echocardiogram also ordered and pending - follow results. Routine neurochecks, PT/OT evals & speech therapy eval. Fall and aspiration precautions as per stroke rule-out protocol. Fasting lipid panel and hemoglobin A1c in AM - follow results. Hypertension On 5mg amlodipine & 10mg lisinopril daily [employer] M[employer]ER; Pt remained rather hypertensive in the ED. BP 169/133 during our conversation in the ED. Pt took both of his antihypertensive meds this morning. Will increase his amlodipine to 5mg BID; Can continue lisinopril dosing - 10mg/daily. PRN IV hydralazine 5mg Q4H for SBP>180. 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 Sleep Apnea Pt uses BiPAP HS [employer]HR[employer] MIXER; Ordered to use HS, continue while inpatient. 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 Anxiety & Depression Post-Traumatic Stress Disorder Can continue MUSHR[employer] MIXER psychiatric medications. DVT Prophylaxis: SQ Lovenox Code Status: FULL CODE PCP: Luis Candelario NP Disposition: Observation in Med/Surg + Telemetry Patient seen in collaboration with Dr. Foss. Please see addendum. I spent a total of 75 minutes coordinating, documenting, and providing care for this patient excluding time spent in the performance of separately billed services. This included personally reviewing all current laboratories and imaging studies, medical reconciliation, outpatient chart review and discussion with specialists. This chart was completed in part utilizing Speech Voice Recognition Software. Grammatical errors, random word insertions, pronoun errors, and incomplete sentences are an occasional consequence of this system due to software limitations, ambient noise, and hardware issues. Any formal questions or concerns about the content, text, or information contained within the body of this dictation should be directly addressed to the provider for clarification. History of Present Illness Chief Complaint: Dizziness, Ambulatory Difficulty Primary Care Provider: Luis Candelario NP Song Harding is a 64y/o M with PMHx of dyslipidemia, HTN, GERD, history of hepatitis B, sleep apnea, gout, PTSD, history of retinal detachment of both eyes and other problems listed below who presented to the ED for evaluation secondary to dizziness and inability to walk straight. History obtained from patient and associated chart review. Patient seen at bedside with Dr. Foss. Patient with mildly slurred speech and questionable left facial droop in the ED. He was also having difficulty walking straight and was leaning to his right side. Therefore, stroke alert was called for this patient in the ED. Patient reports that felt some pressure in his right ear this morning while he was working and started to feel off after a call this morning. [place] as if he wasnt walking right. Had to hold onto objects around him to keep him upright. Denies any dysphagia, headache, visual changes or facial drooping. No recent illnesses or sinus congestion. No history of stroke. He does have high blood pressure, but no other cardiac history or history of cardiac stents. Patient does have a slight lisp at baseline when talking, but otherwise has not noticed any issues with his speech. He had a bowl of cereal this morning around 5 oclock. 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 Denies any leg weakness, arm weakness, falls, trauma, injuries or other concerning signs or symptoms. He is on 81mg aspirin daily for protection given his history of hypertension. He does not smoke or drink alcohol. He did have an episode of vertigo about 4 years ago but did not experience the spinning sensation today that he had back then with the vertigo. Allergies Allergy/AdvReac Type Severity Reaction Status Date / Time No Known Allergies Allergy Verified 03/09/20 06:51 Home Medications Medication Instructions Recorded Confirmed Type amlodipine 5 mg tablet 5 mg PO DAILY 11/06/18 04/14/24 History aspirin 81 mg chewable tablet 81 mg PO DAILY 11/06/18 04/14/24 History atorvastatin 40 mg tablet 40 mg PO QPM 11/06/18 04/14/24 History lisinopril 10 mg tablet 10 mg PO DAILY 11/06/18 04/14/24 History omeprazole 20 mg capsule,delayed 20 mg PO DAILY 11/06/18 04/14/24 History release trazodone 50 mg tablet 150 mg PO HS 11/06/18 04/14/24 History escitalopram oxalate 10 mg tablet 10 mg PO DAILY 03/09/20 04/14/24 History (Lexapro) ketoconazole 2 % shampoo 2 % topical DIRECTED 03/09/20 04/14/24 History Wellbutrin 100 mg PO DAILY 04/14/24 04/14/24 History Past Med/Surg History Problem List Impaired ambulation Pressure sensation in right ear History of hepatitis B Fall down steps (Acute) Facial abrasion (Acute) Work related injury (Acute) Family History Other Family history non-contributory Social History Smoking Status: Never smoker Second Hand Exposure: No; Do You Dip or Chew Tobacco: No; Hx Alcohol Use: Yes Alcohol type: beer Hx Substance Use: No Preferred Language: Argentine Communication Ability: Effective 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 Physical Exam Physical Exam: Please refer to Dr. Foss's addendum for physical examination findings. Results & Data Results & Data Vital Signs (Past 12 Hours) Vital Signs Temp Pulse Resp BP Pulse Ox O2 Del Method 04/14/24 12:03 64 20 171/101 H 97 Room Air 04/14/24 11:54 63 20 96 Room Air 04/14/24 11:49 64 04/14/24 11:48 184/110 H 04/14/24 11:45 66 20 163/110 H 98 Room Air 04/14/24 11:11 36.2 C L 68 18 146/77 H 95 Room Air Laboratory Results Short CBC 04/14/24 Range/Units 11:28 WBC 7.80 (4.8-10.8) K/ul Hgb 14.6 (14.0-18.0) g/dl Hct 44.2 (42.0-52.0) % Plt Count 224 (130-400) K/uL BMP 04/14/24 11:28 Sodium 141 Potassium 4.0 Chloride 108 H Carbon Dioxide 26 BUN 14 Creatinine 0.94 Glucose 104 H Calcium 9.3 Liver Function 04/14/24 Range/Units 11:28 Total Bilirubin 0.8 (0.2-1.0) mg/dl AST 17 (13-39) U/L ALT 24 (7-52) U/L Alkaline Phosphatase 93 (34-104) U/L Albumin 4.7 (3.4-5.0) gm/dl Diagnostic Findings Head CT 04/14/24 11:25 CT head/brain wo con CLINICAL HISTORY: neuro deficit, acute stroke suspected Technique: Contiguous axial CT images of the head were acquired from the base of the skull to the vertex without intravenous contrast administration. Images were viewed in brain, subdural and bone windows. Automated dose lowering techniques and/or adjustment according to patient size were utilized for this exam. Comparison: None available at the time of this dictation. Findings: The ventricles, basal cisterns, and cerebral sulci are normal. There is no acute intracranial hemorrhage or evidence of acute territorial infarction. Neither mass effect, shift of the midline structures, nor abnormal extra-axial fluid collections are shown. Imaged portions of the paranasal sinuses and mastoid air cells are clear. The orbits appear normal. There are no acute fractures of the calvaria or scalp swelling. Impression: No acute intracranial hemorrhage, no evidence of acute territorial infarction or other acute intracranial disease process. ACT 112: Negative or not required by law. Electronically signed by: Mateusz Espinoza M.D. 04/14/2024 11:49 AM Head CTA 04/14/24 11:25 CT angio neck with con, CT angio head w con CLINICAL HISTORY: neuro deficit, acute stroke suspected TECHNIQUE: CT angiography of the head and neck was performed following intravenous administration of iodinated contrast. Coronal and sagittal MIPS were obtained from the axial data set and were submitted for review. Automated dose lowering techniques and/or adjustment according to patient size were utilized for this examination. All measurements were calculated based on NASCET criteria. CT DOSE: 1406.02 mGy.cm Comparison: None available at the time of this dictation. FINDINGS: Lungs and soft tissues are unremarkable. CTA Neck: A 3 vessel aortic arch is shown. There is no significant atherosclerotic plaque in the aortic arch or the origins of the innominate, left common carotid, and left subclavian arteries. The common carotid, external carotid, cervical segments of the internal carotid arteries, and the cervical segments of the vertebral arteries are patent without hemodynamically significant stenosis. The right vertebral artery is dominant. CTA Head: The anterior and posterior cerebral circulations are patent. origin of the bilateral posterior cerebral arteries noted. IMPRESSION: 1. No occlusion, hemodynamically significant stenosis, or dissection in the major cervical arteries. 2. No occlusion, hemodynamically significant stenosis, aneurysm, dissection, or arteriovenous malformation in the major intracranial arteries. Assessment of stenosis of the internal carotid arteries is based on NASCET criteria. ACT 112: Negative or not required by law. Electronically signed by: Mateusz Espinoza M.D. 04/14/2024 11:51 AM Neck CTA 04/14/24 11:25 CT angio neck with con, CT angio head w con CLINICAL HISTORY: neuro deficit, acute stroke suspected TECHNIQUE: CT angiography of the head and neck was performed following intravenous administration of iodinated contrast. Coronal and sagittal MIPS were obtained from the axial data set and were submitted for review. Automated dose lowering techniques and/or adjustment according to patient size were utilized for this examination. All measurements were calculated based on NASCET criteria. CT DOSE: 1406.02 mGy.cm Comparison: None available at the time of this dictation. FINDINGS: Lungs and soft tissues are unremarkable. CTA Neck: A 3 vessel aortic arch is shown. There is no significant atherosclerotic plaque in the aortic arch or the origins of the innominate, left common carotid, and left subclavian arteries. The common carotid, external carotid, cervical segments of the internal carotid arteries, and the cervical segments of the vertebral arteries are patent without hemodynamically significant stenosis. The right vertebral artery is dominant. CTA Head: The anterior and posterior cerebral circulations are patent. origin of the bilateral posterior cerebral arteries noted. IMPRESSION: 1. No occlusion, hemodynamically significant stenosis, or dissection in the major cervical arteries. 2. No occlusion, hemodynamically significant stenosis, aneurysm, dissection, or arteriovenous malformation in the major intracranial arteries. Assessment of stenosis of the internal carotid arteries is based on NASCET criteria. ACT 112: Negative or not required by law. Electronically signed by: Mateusz Espinoza M.D. 04/14/2024 11:51 AM Medications Administered Discontinued Medications Ioversol (Optiray 320 125ml) 112 ml IV ONCE ONE Stop: 04/14/24 11:29 Last Admin: 04/14/24 11:28 Dose: 112 ml Documented By: ZHENG Code Status & VTE Plan Code Status FULL CODE Supervising Physician Co-Signing Physician Notes Patient was seen and examined with Muna ABREU at bedside. Chart reviewed. Case discussed with Muna and agree with the documentation above. 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 No vertigo. Vitals stable except for elevated BP, labs stable. S/p stroke alert and seen by teleneuro who thought likely peripheral origin but recommended stroke work up with MRI brain. CT, CTA head and neck unremarkable. No other neuro symptoms. Will continue stroke protocol and get MRI brain per recommendation. Rest as per the note above. On exam- General: Lying comfortably in bed, not in distress, on room air HEENT: EOMI, VIRGIL, MMM Chest: Clear breath sounds bilaterally, no wheezes or crackles CVS: Regular rate and rhythm, normal heart sounds, no murmur Abdomen: Soft, non tender, not distended, normal bowel sounds Neuro: Awake, alert, orientedx3, conversing well, no aphasia. CN grossly intact. No pronator drift. Strength 5/5 on all extremities. Finger-nose test and heel- scott test intact bilaterally. Gait not checked. On right otoscopy, wax noted and could not visualize much of TM. No tragal or mastoid tenderness. Gait was not checked. Extremities: No edema
[2024-04-14] MEDS: ASPIRIN 81 MG CHEW PO STA (14:09)
[2024-04-14] MEDS ORDERED: PHARMACIST DISCHARGE MED REC CONSULT PRN (14:13)
--- NOTE | 2024-04-14 14:36 | Magnetic Resonance Report ---
MR brain wo con CLINICAL HISTORY: Stroke r/o TECHNIQUE: Multiplanar and multisequence MR images of the brain were obtained without intravenous con trast. Comparison: None available at the time of this dictation. FINDINGS: No abnormal restricted diffusion is identified. The white matter is unremarkable. The ventricular sys tem is normal in appearance. No mass is seen. There is no mass effect or midline shift. There is no e vidence of acute intraparenchymal hemorrhage. No extra axial fluid collections are seen. The corpus c allosum, pituitary gland, and cerebellar tonsils appear grossly unremarkable. Flow voids of the major intracranial arterial vessels are identified. The imaged portions of the para nasal sinuses, mastoid air cells, and orbits are unremarkable. IMPRESSION: No acute abnormality and in particular no evidence of acute infarct. ACT 112: Negative or not required by law. Electronically signed by: Mateusz Espinoza M.D. 04/14/2024 2:34 PM
[2024-04-14] MEDS: ENOXAPARIN INJ 40 MG/0.4 ML SYR SQ SCH (15:25)
[2024-04-14] MEDS: hydrALAZINE HCL 20 MG/ML VIAL IV PRN (17:50)
[2024-04-14] MEDS: SODIUM CHLORIDE 0.9% 500 ML IV ONE (18:35)
[2024-04-14] MEDS ORDERED: amLODIPine BESYLATE 5 MG TAB PO SCH (21:00)
[2024-04-14] MEDS: ONDANSETRON INJ 2 MG/ML 2 ML VIAL IV PRN (21:08)
[2024-04-14] MEDS: ESCITALOPRAM OXALATE 10 MG TAB PO SCH (21:14)
[2024-04-14] MEDS: ATORVASTATIN 40 MG TAB PO SCH (21:14)
[2024-04-14] MEDS: traZODone HCL 50 MG TAB PO SCH (21:14)
[2024-04-14] MEDS: CHOLECALCIFEROL 25 MCG (1000 UNITS) TAB PO SCH (22:16)
[2024-04-15] MEDS: PROMETHAZINE HCL 12.5 MG in SODIUM CHLORIDE 0.9% 50 ML IV STA (00:40)
--- NOTE | 2024-04-15 02:27 | CT Scan Report ---
Exam(s): CT HEAD Without Contrast EXAM: CT Head Without Intravenous Contrast CLINICAL HISTORY: enlarged right pupil TECHNIQUE: Axial computed tomography images of the head/brain without intravenous contrast. CTDI is 35.65 mGy and DLP is 624.41 mGy-cm. Automated exposure control was utilized for the study. A dose lowering technique was utilized adhering to the principles of ALARA. COMPARISON: MRI brain and CT head 04/14/2024 FINDINGS: Brain: No intracranial hemorrhage, mass-effect or midline shift. No abnormal extra axial fluid. No evidence of acute infarct. Mild periventricular white matter hypodensities are most consistent with chronic microangiopathy. Ventricles: Unremarkable. No ventriculomegaly. Bones/joints: Unremarkable. No acute fracture. Soft tissues: Unremarkable. Sinuses: Unremarkable as visualized. No acute sinusitis. Mastoid air cells: Unremarkable as visualized. No mastoid effusion. IMPRESSION: No acute intracranial finding. Electronically signed by: Megan Poe MD 04/15/24 02:26 AM
[2024-04-15 06:31] LABS: Basophils # (auto) 0.04 K/uL (0.00-0.20); Basophils % (auto) 0.4 %; Eosinophils # (auto) 0.03 K/uL (0.00-0.50); Eosinophils % (auto) 0.3 %; Hematocrit (blood only) 43.1 % (42.0-52.0); Hemoglobin 14.3 g/dl (14.0-18.0); Immature Granulocytes # (auto) 0.03 K/uL (0.01-0.20); Immature Granulocytes % (auto) 0.3 %; Lymphocytes # (auto) 1.23 K/uL (1.20-3.40); Lymphocytes % (auto) 13.4 %; Mean Corpuscular Hemoglobin 28.6 pg (25.0-34.0); Mean Corpuscular Hgb Conc 33.2 g/dL (32.0-36.0); Mean Corpuscular Volume 86.2 fL (80.0-100.0); Mean Platelet Volume 11.6 fL (9.4-12.4); Monocytes % (auto) 8.7 %; Neutrophils # (auto) 7.04 K/uL (1.40-6.50); Neutrophils % (auto) 76.9 %; Platelet Count 231 K/uL (130-400); RDW Coefficient of Variation 12.9 % (11.5-14.5); RDW Standard Deviation 40.2 fL (36.4-46.3); White Blood Count 9.17 K/ul (4.8-10.8)
[2024-04-15 06:52] LABS: BUN Creatinine Ratio 16.1 (10-20); Calcium 8.9 mg/dl (8.6-10.3); Chol HDL Ratio 5.3 (0-5); Creatinine Clr Calc Pharmacy 120.2 ml/min; Est GFR (African American) 106.5 ml/min; Est GFR (Non-African American) 91.9 ml/min; Magnesium 2.2 mg/dl (1.7-2.4); Phosphorus 4.3 mg/dl (2.5-4.9); Potassium 4.4 mmol/L (3.5-5.1)
--- NOTE | 2024-04-15 06:53 | Electrocardiogram Report ---
Test Reason : Blood Pressure : / mmHG Vent. Rate : 061 BPM Atrial Rate : 061 BPM P-R Int : 172 ms QRS Dur : 080 ms QT Int : 440 ms P-R-T Axes : 049 039 049 degrees QTc Int : 442 ms Normal sinus rhythm Normal ECG When compared with ECG of 27-JAN-2015 17:51, No significant change was found Confirmed by Eric Bro ([id number]) on 04/15/2024 6:52:32 AM Referred By: REFERRED SELF Confirmed By:Gerry Bro
--- NOTE | 2024-04-15 07:13 | Hospitalist Progress Note ---
Date of Service April 15, 2024 Assessment & Plan (1) Impaired ambulation: Plan Song Harding is a 64y/o M with PMHx of dyslipidemia, HTN, GERD, history of hepatitis B, sleep apnea, gout, PTSD, history of retinal detachment of both eyes and other problems listed below who presented to the ED for evaluation secondary to dizziness and inability to walk straight. #Stroke like symptoms c/f nystagmus #Dizziness Admitted for stroke r/o Pt presenting w/ difficulty walking, dizziness and right ear pressure. Patient w/ significant difficulty walking straight in the ED - stroke alert loaded with aspirin in the ED. Head CT negative for any acute findings. Head and neck CTA imaging were both negative for any acute findings as well. Brain MRI: normal, no mass effect/hemorrhage/white matter changes LDL 73. Total 128; A1C Echocardiogram 60-65%, GIIDD, no ASD Routine neurochecks, PT/OT evals & speech therapy eval. Fall and aspiration precautions as per stroke rule-out protocol. 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 PRN IV hydralazine 5mg Q4H for SBP>180. 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 DVT Prophylaxis: SQ Lovenox Code Status: FULL CODE PCP: Luis Candelario NP Disposition: Observation in Med/Surg + Telemetry Admission and Anticipated Discharge Date Admission Date: April 14, 2024 Subjective Reports positional dizziness Denies nausea, vomiting, or other acute concerns Endorses history of this event happening before--resolved with Nancy maneuvers historically Physical Exam Constitutional: WD/WN, vitals as above Respiratory: normal respiratory effort, lungs clear to auscultation Gastrointestinal (Abdomen): normal bowel sounds, soft, nontender, no hepatosplenomegaly Neurologic: nystagmus sitting upright, otherwise no focal deficits noted otherwise Results & Data Results & Data Vital Signs (Past 12 Hours) Vital Signs Temp Pulse Pulse Resp BP BP Pulse Ox 04/15/24 05:22 36.6 C 54 L 18 136/76 95 08/04/24 01:43 36.8 C 54 L 16 142/77 H 91 04/15/24 00:05 58 L 144/79 H 95 04/14/24 22:30 35.9 C L 54 L 16 97/38 L 157/91 H 97 04/14/24 22:29 21 97 04/14/24 21:50 60 04/14/24 19:45 04/14/24 19:41 36.4 C L 57 L 18 160/81 H 94 O2 Del Method FiO2 04/15/24 05:22 Room Air 04/15/24 01:43 Room Air 04/15/24 00:05 Room Air 04/14/24 22:30 Room Air 04/14/24 22:29 21 04/14/24 21:50 04/14/24 19:45 Room Air 04/14/24 19:41 Room Air Laboratory Results Short CBC 04/14/24 04/15/24 Range/Units 11:28 05:21 WBC 7.80 9.17 (4.8-10.8) K/ul Hgb 14.6 14.3 (14.0-18.0) g/dl Hct 44.2 43.1 (42.0-52.0) % Plt Count 224 231 (130-400) K/uL BMP 04/14/24 04/15/24 11:28 05:21 Sodium 141 139 Potassium 4.0 4.4 Chloride 108 H 105 Carbon Dioxide 26 26 BUN 14 14 Creatinine 0.94 0.87 Glucose 104 H 125 H Calcium 9.3 8.9 Liver Function 04/14/24 Range/Units 11:28 Total Bilirubin 0.8 (0.2-1.0) mg/dl AST 17 (13-39) U/L ALT 24 (7-52) U/L Alkaline Phosphatase 93 (34-104) U/L Albumin 4.7 (3.4-5.0) gm/dl Diagnostic Findings Head CT 04/15/24 00:16 Exam(s): CT HEAD Without Contrast EXAM: CT Head Without Intravenous Contrast CLINICAL HISTORY: enlarged right pupil TECHNIQUE: Axial computed tomography images of the head/brain without intravenous contrast. CTDI is 35.65 mGy and DLP is 624.41 mGy-cm. Automated exposure control was utilized for the study. A dose lowering technique was utilized adhering to the principles of ALARA. COMPARISON: MRI brain and CT head 04/14/2024 FINDINGS: Brain: No intracranial hemorrhage, mass-effect or midline shift. No abnormal extra axial fluid. No evidence of acute infarct. Mild periventricular white matter hypodensities are most consistent with chronic microangiopathy. Ventricles: Unremarkable. No ventriculomegaly. Bones/joints: Unremarkable. No acute fracture. Soft tissues: Unremarkable. Sinuses: Unremarkable as visualized. No acute sinusitis. Mastoid air cells: Unremarkable as visualized. No mastoid effusion. IMPRESSION: No acute intracranial finding. Electronically signed by: Megan Poe MD 04/15/24 02:26 AM Medications Administered Home Medications Medication Instructions Recorded Confirmed Last Taken amlodipine 5 mg tablet 5 mg PO DAILY 11/06/18 04/14/24 03/09/20 aspirin 81 mg chewable tablet 81 mg PO DAILY 11/06/18 04/14/24 03/09/20 atorvastatin 40 mg tablet 40 mg PO QPM 11/06/18 04/14/24 03/08/20 lisinopril 10 mg tablet 10 mg PO DAILY 11/06/18 04/14/24 03/09/20 omeprazole 20 mg capsule,delayed 20 mg PO DAILY 11/06/18 04/14/24 03/09/20 release trazodone 50 mg tablet 150 mg PO HS 11/06/18 04/14/24 03/08/20 escitalopram oxalate 10 mg tablet 10 mg PO DAILY 03/09/20 04/14/24 03/09/20 (Lexapro) ketoconazole 2 % shampoo 2 % topical DIRECTED 03/09/20 04/14/24 Unknown Wellbutrin 100 mg PO DAILY 04/14/24 04/14/24 Unknown Active Medications Generic Name Dose Route Start Last Admin Trade Name Freq PRN Reason Stop Dose Admin Amlodipine Besylate 10 mg 04/15/24 09:00 04/15/24 08:31 Amlodipine Besylate 5 Mg Tab PO 05/15/24 08:59 10 mg DAILY SANJUANA Administration Aspirin 81 mg 04/15/24 09:00 04/15/24 08:32 Aspirin 81 Mg Chew PO 05/15/24 08:59 81 mg DAILY SANJUANA Administration Atorvastatin Calcium 40 mg 04/14/24 21:00 08/03/24 21:14 Atorvastatin 40 Mg Tab PO 05/14/24 20:59 40 mg QPM SANJUANA Administration Bupropion HCl 100 mg 04/15/24 09:00 04/15/24 08:32 Bupropion Sr 100 Mg Tabcr PO 05/15/24 08:59 100 mg DAILY SANJUANA Administration Enoxaparin Sodium 40 mg 04/14/24 14:13 04/15/24 01:39 Enoxaparin Inj 40 Mg/0.4 Ml Syr SQ 05/14/24 14:12 40 mg Q12H SANJUANA Administration Escitalopram Oxalate 10 mg 04/14/24 21:00 04/14/24 21:14 Escitalopram Oxalate 10 Mg Tab PO 05/14/24 20:59 10 mg HS SANJUANA Administration Lisinopril 10 mg 04/15/24 09:00 04/15/24 08:32 Lisinopril 10 Mg Tab PO 05/15/24 08:59 10 mg DAILY SANJUANA Administration Ondansetron HCl 4 mg 04/14/24 20:30 04/14/24 21:08 Ondansetron Inj 2 Mg/Ml 2 Ml Vial IV 05/14/24 20:29 4 mg Q6H PRN Administration Nausea And Vomiting Pantoprazole Sodium 40 mg 04/15/24 09:00 04/15/24 08:32 Pantoprazole 40 Mg Tab PO 05/15/24 08:59 40 mg DAILY SANJUANA Administration Protocol Trazodone HCl 150 mg 04/14/24 21:00 04/14/24 21:14 Trazodone Hcl 50 Mg Tab PO 05/14/24 20:59 150 mg HS SANJUANA Administration Vitamin D 25 mcg 04/14/24 21:00 04/14/24 22:16 Cholecalciferol 25 Mcg (1000 Units) Tab PO 05/14/24 20:59 25 mcg HS SANJUANA Administration
[2024-04-15] MEDS: amLODIPine BESYLATE 5 MG TAB PO SCH (08:31)
[2024-04-15] MEDS: MECLIZINE HCL 25 MG TAB PO STA (08:31)
[2024-04-15] MEDS: PANTOprazole 40 MG TAB PO SCH (08:32)
[2024-04-15] MEDS: lisinopril 10 MG TAB PO SCH (08:32)
[2024-04-15] MEDS: ASPIRIN 81 MG CHEW PO SCH (08:32)
[2024-04-15] MEDS: buPROPion SR 100 MG TABCR PO SCH (08:32)
[2024-04-15 08:54] LABS: Estimated Average Glucose 123 mg/dl; Hemoglobin A1C 5.9 % (4.5-5.6)
[2024-04-15] MEDS ORDERED: amLODIPine BESYLATE 5 MG TAB PO SCH (09:00)
[2024-04-15] MEDS ORDERED: ESCITALOPRAM OXALATE 10 MG TAB PO SCH (09:00)
[2024-04-15] MEDS: methylPREDNISolone 40 MG in SYRINGE 0 ML IV ONE (10:42)
--- NOTE | 2024-04-15 12:57 | Communication Note ---
Date of Service: April 15, 2024 EMR reviewed Patient experiencing vestibular symptoms Has undergone MRI brain revealing no over evidence of acute intracranial process Agree with IV steroids, continue to control symptoms Continue to monitor renal and hepatic function, keep euvolemic Monitor telemetry closely, Kyrie alvarado at [place] Recommend ambulatory referral to ENT
[2024-04-15] MEDS ORDERED: methylPREDNISolone 4 MG TAB, 6 DAY TAPER PO SCH (14:30)
[2024-04-15] MEDS: methylPREDNISolone 4 MG TAB PO SCH (16:08)
[2024-04-16] MEDS: methylPREDNISolone 4 MG TAB PO SCH ×2 (06:36→20:30)
[2024-04-16 06:53] LABS: Basophils # (auto) 0.01 K/uL (0.00-0.20); Basophils % (auto) 0.1 %; Eosinophils # (auto) 0.02 K/uL (0.00-0.50); Eosinophils % (auto) 0.1 %; Hematocrit (blood only) 44.5 % (42.0-52.0); Immature Granulocytes # (auto) 0.05 K/uL (0.01-0.20); Immature Granulocytes % (auto) 0.3 %; Lymphocytes % (auto) 5.9 %; Mean Corpuscular Hemoglobin 28.5 pg (25.0-34.0); Mean Corpuscular Hgb Conc 33.7 g/dL (32.0-36.0); Mean Corpuscular Volume 84.4 fL (80.0-100.0); Mean Platelet Volume 11.7 fL (9.4-12.4); Monocytes % (auto) 6.6 %; Neutrophils # (auto) 13.26 K/uL (1.40-6.50); Platelet Count 238 K/uL (130-400); RDW Coefficient of Variation 13.1 % (11.5-14.5); Red Blood Count 5.27 M/uL (4.70-6.10); White Blood Count 15.24 K/ul (4.8-10.8)
[2024-04-16 07:18] LABS: BUN Creatinine Ratio 17.5 (10-20); Calcium 9.3 mg/dl (8.6-10.3); Creatinine Clr Calc Pharmacy 100.4 ml/min; Est GFR (African American) 89.2 ml/min; Est GFR (Non-African American) 76.9 ml/min; Potassium 4.6 mmol/L (3.5-5.1)
--- NOTE | 2024-04-16 10:51 | Hospitalist Progress Note ---
Date of Service April 16, 2024 Assessment & Plan (1) Impaired ambulation: Plan Song Harding is a 64y/o M with PMHx of dyslipidemia, HTN, GERD, history of hepatitis B, sleep apnea, gout, PTSD, history of retinal detachment of both eyes and other problems listed below who presented to the ED for evaluation secondary to dizziness and inability to walk straight. #Acute Vestibular Neuritis #Stroke like symptoms w/ nystagmus *resolving #Dizziness/vertigo Admitted for stroke r/o Pt presenting w/ difficulty walking, dizziness and right ear pressure. Patient w/ significant difficulty walking straight in the ED - stroke alert loaded with aspirin in the ED. Head CT negative for any acute findings. Head and neck CTA imaging were both negative for any acute findings as well. Brain MRI: normal, no mass effect/hemorrhage/white matter changes LDL 73. Total 128; A1C Echocardiogram 60-65%, GIIDD, no ASD Routine neurochecks, PT/OT evals & speech therapy eval. Fall and aspiration precautions as per stroke rule-out protocol. 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 DVT Prophylaxis: SQ Lovenox Code Status: FULL CODE PCP: Luis Candelario NP Disposition: Observation in Med/Surg + Telemetry: dipso in 1-2 days contingent on response to michele, PT/OT Admission and Anticipated Discharge Date Admission Date: April 14, 2024 Subjective Reports some improvement with steroids Denies any further vomiting, but still feels a bit unsteady No new concerns Physical Exam Constitutional: WD/WN, vitals as above Respiratory: normal respiratory effort, lungs clear to auscultation Cardiovascular: RRR, no murmur, no edema Neurologic: PERRL, EOMI, accommodation nl, no face palsy, no dysarthria Results & Data Results & Data Vital Signs (Past 12 Hours) Vital Signs Temp Pulse Pulse Resp BP Pulse Ox O2 Del Method 04/16/24 07:54 56 L 04/16/24 07:26 36.7 C 61 14 125/69 95 Room Air 04/16/24 02:11 36.6 C 59 L 18 127/71 93 Room Air Laboratory Results Short CBC 04/16/24 Range/Units 05:22 WBC 15.24 H (4.8-10.8) K/ul Hgb 15.0 (14.0-18.0) g/dl Hct 44.5 (42.0-52.0) % Plt Count 238 (130-400) K/uL BMP 04/16/24 05:22 Sodium 141 Potassium 4.6 Chloride 107 Carbon Dioxide 27 BUN 18 Creatinine 1.03 Glucose 130 H Calcium 9.3 Medications Administered Home Medications Medication Instructions Recorded Confirmed Last Taken amlodipine 5 mg tablet 5 mg PO DAILY 11/06/18 04/14/24 03/09/20 aspirin 81 mg chewable tablet 81 mg PO DAILY 11/06/18 04/14/24 03/09/20 atorvastatin 40 mg tablet 40 mg PO QPM 11/06/18 04/14/24 03/08/20 lisinopril 10 mg tablet 10 mg PO DAILY 11/06/18 04/14/24 03/09/20 omeprazole 20 mg capsule,delayed 20 mg PO DAILY 11/06/18 04/14/24 03/09/20 release trazodone 50 mg tablet 150 mg PO HS 11/06/18 04/14/24 03/08/20 escitalopram oxalate 10 mg tablet 10 mg PO DAILY 03/09/20 04/14/24 03/09/20 (Lexapro) ketoconazole 2 % shampoo 2 % topical DIRECTED 03/09/20 04/14/24 Unknown Wellbutrin 100 mg PO DAILY 04/14/24 04/14/24 Unknown Active Medications Generic Name Dose Route Start Last Admin Trade Name Freq PRN Reason Stop Dose Admin Amlodipine Besylate 10 mg 04/15/24 09:00 04/16/24 08:50 Amlodipine Besylate 5 Mg Tab PO 05/15/24 08:59 10 mg DAILY SANJUANA Administration Aspirin 81 mg 04/15/24 09:00 04/16/24 08:50 Aspirin 81 Mg Chew PO 05/15/24 08:59 81 mg DAILY SANJUANA Administration Atorvastatin Calcium 40 mg 04/14/24 21:00 04/15/24 20:07 Atorvastatin 40 Mg Tab PO 05/14/24 20:59 40 mg QPM SANJUANA Administration Bupropion HCl 100 mg 04/15/24 09:00 04/16/24 08:51 Bupropion Sr 100 Mg Tabcr PO 05/15/24 08:59 100 mg DAILY SANJUANA Administration Enoxaparin Sodium 40 mg 04/14/24 14:13 04/16/24 02:09 Enoxaparin Inj 40 Mg/0.4 Ml Syr SQ 05/14/24 14:12 40 mg Q12H SANJUANA Administration Escitalopram Oxalate 10 mg 04/14/24 21:00 04/15/24 20:07 Escitalopram Oxalate 10 Mg Tab PO 05/14/24 20:59 10 mg HS SANJUANA Administration Lisinopril 10 mg 04/15/24 09:00 04/16/24 08:51 Lisinopril 10 Mg Tab PO 05/15/24 08:59 10 mg DAILY SANJUANA Administration Methylprednisolone 4 mg 04/16/24 07:00 04/16/24 06:36 Methylprednisolone 4 Mg Tab PO 04/16/24 18:01 4 mg 0700,1300,1800 SANJUANA Administration Ondansetron HCl 4 mg 04/14/24 20:30 04/16/24 08:45 Ondansetron Inj 2 Mg/Ml 2 Ml Vial IV 05/14/24 20:29 4 mg Q6H PRN Administration Nausea And Vomiting Pantoprazole Sodium 40 mg 04/15/24 09:00 04/16/24 08:51 Pantoprazole 40 Mg Tab PO 05/15/24 08:59 40 mg DAILY SANJUANA Administration Protocol Trazodone HCl 150 mg 04/14/24 21:00 04/15/24 20:07 Trazodone Hcl 50 Mg Tab PO 05/14/24 20:59 150 mg HS SANJUANA Administration Vitamin D 25 mcg 04/14/24 21:00 04/15/24 20:07 Cholecalciferol 25 Mcg (1000 Units) Tab PO 05/14/24 20:59 25 mcg HS SANJUANA Administration
[2024-04-16] MEDS: PSEUDOEPHEDRINE HCL 30 MG TAB PO STA (16:17)
[2024-04-16] MEDS: FLUTICASONE PROPIONATE NA SPR 16 GM BTL SCH (17:48)
[2024-04-17] MEDS: methylPREDNISolone 4 MG TAB PO SCH (06:34)
--- NOTE | 2024-04-17 08:03 | Hospitalist Progress Note ---
Date of Service April 17, 2024 Assessment & Plan (1) Impaired ambulation: Plan Song Harding is a 64y/o M with PMHx of dyslipidemia, HTN, GERD, history of hepatitis B, sleep apnea, gout, PTSD, history of retinal detachment of both eyes and other problems listed below who presented to the ED for evaluation secondary to dizziness and inability to walk straight. #Acute Vestibular Neuritis #Stroke like symptoms w/ nystagmus *resolving #Dizziness/vertigo Admitted for stroke r/o Pt presenting w/ difficulty walking, dizziness and right ear pressure. Patient w/ significant difficulty walking straight in the ED - stroke alert loaded with aspirin in the ED. Head CT negative for any acute findings. Head and neck CTA imaging were both negative for any acute findings as well. Brain MRI: normal, no mass effect/hemorrhage/white matter changes LDL 73. Total 128; A1C Echocardiogram 60-65%, GIIDD, no ASD Routine neurochecks, PT/OT evals & speech therapy eval. Fall and aspiration precautions as per stroke rule-out protocol. 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 DVT Prophylaxis: SQ Lovenox Code Status: FULL CODE PCP: Luis Candelario NP Disposition: Observation in Med/Surg + Telemetry: dipso in 1-2 days contingent on response to michele, PT/OT Admission and Anticipated Discharge Date Admission Date: April 14, 2024 Results & Data Results & Data Vital Signs (Past 12 Hours) Vital Signs Temp Pulse Pulse Resp BP Pulse Ox O2 Del Method 04/17/24 07:38 53 L 04/17/24 07:37 36.5 C 52 L 15 126/78 95 Room Air 04/17/24 02:09 36.5 C 51 L 18 124/74 93 Room Air 04/16/24 23:09 36.9 C 65 18 131/79 94 Room Air 04/16/24 21:46 55 L
[2024-04-17 08:42] LABS: Basophils # (auto) 0.03 K/uL (0.00-0.20); Basophils % (auto) 0.2 %; Eosinophils # (auto) 0.07 K/uL (0.00-0.50); Eosinophils % (auto) 0.5 %; Hematocrit (blood only) 46.1 % (42.0-52.0); Hemoglobin 15.4 g/dl (14.0-18.0); Immature Granulocytes # (auto) 0.04 K/uL (0.01-0.20); Immature Granulocytes % (auto) 0.3 %; Lymphocytes % (auto) 9.1 %; Mean Corpuscular Hemoglobin 28.7 pg (25.0-34.0); Mean Corpuscular Hgb Conc 33.4 g/dL (32.0-36.0); Mean Corpuscular Volume 85.8 fL (80.0-100.0); Mean Platelet Volume 11.9 fL (9.4-12.4); Monocytes # (auto) 0.93 K/uL (0.11-0.59); Monocytes % (auto) 6.5 %; Neutrophils # (auto) 11.92 K/uL (1.40-6.50); Neutrophils % (auto) 83.4 %; Platelet Count 250 K/uL (130-400); RDW Coefficient of Variation 13.3 % (11.5-14.5); RDW Standard Deviation 41.5 fL (36.4-46.3); Red Blood Count 5.37 M/uL (4.70-6.10); White Blood Count 14.29 K/ul (4.8-10.8)
[2024-04-17 08:58] LABS: BUN Creatinine Ratio 23.5 (10-20); Calcium 9.2 mg/dl (8.6-10.3); Creatinine Clr Calc Pharmacy 100.9 ml/min; Est GFR (African American) 90.2 ml/min; Est GFR (Non-African American) 77.9 ml/min; Potassium 4.6 mmol/L (3.5-5.1)
--- NOTE | 2024-04-17 11:50 | Discharge Summary ---
Discharge Summary Date of Service April 17, 2024 Principal Dx & Hospital Course #1 = Principal Diagnosis (1) Acute vestibular neuritis: (2) Impaired ambulation: Plan Song Harding is a 64y/o M with PMHx of dyslipidemia, HTN, GERD, history of hepatitis B, sleep apnea, gout, PTSD, history of retinal detachment of both eyes and other problems listed below who presented to the ED for evaluation secondary to dizziness and inability to walk straight. MRI negative for stroke. Suspicion for acute neuritis given presentation and responsive to steriods. Patient improved notably, requiring a roller walker for stability and outpatient PT referral #Acute Vestibular Neuritis #Stroke like symptoms w/ nystagmus *resolving #Dizziness/vertigo Admitted for stroke r/o Pt presenting w/ difficulty walking, dizziness and right ear pressure. Patient w/ significant difficulty walking straight in the ED - stroke alert loaded with aspirin in the ED. Head CT negative for any acute findings. Head and neck CTA imaging were both negative for any acute findings as well. Brain MRI: normal, no mass effect/hemorrhage/white matter changes LDL 73. Total 128; A1C Echocardiogram 60-65%, GIIDD, no ASD Routine neurochecks, PT/OT evals & speech therapy eval. Fall and aspiration precautions as per stroke rule-out protocol. 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 Notes For Next Care Provider Medication Changes From Visit Medrol dose roverto Increased amlodipine to 10mg Admission HPI Per Admitting Provider Song Harding is a 64y/o M with PMHx of dyslipidemia, HTN, GERD, history of hepatitis B, sleep apnea, gout, PTSD, history of retinal detachment of both eyes and other problems listed below who presented to the ED for evaluation secondary to dizziness and inability to walk straight. History obtained from patient and associated chart review. Patient seen at bedside with Dr. Foss. Patient with mildly slurred speech and questionable left facial droop in the ED. He was also having difficulty walking straight and was leaning to his right side. Therefore, stroke alert was called for this patient in the ED. Patient reports that felt some pressure in his right ear this morning while he was working and started to feel off after a call this morning. [place] as if he wasnt walking right. Had to hold onto objects around him to keep him upright. Denies any dysphagia, headache, visual changes or facial drooping. No recent illnesses or sinus congestion. No history of stroke. He does have high blood pressure, but no other cardiac history or history of cardiac stents. Patient does have a slight lisp at baseline when talking, but otherwise has not noticed any issues with his speech. He had a bowl of cereal this morning around 5 oclock. 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 Denies any leg weakness, arm weakness, falls, trauma, injuries or other concerning signs or symptoms. He is on 81mg aspirin daily for protection given his history of hypertension. He does not smoke or drink alcohol. He did have an episode of vertigo about 4 years ago but did not experience the spinning sensation today that he had back then with the vertigo. Admission Exam Per Admitting Provider General: Lying comfortably in bed, not in distress, on room air HEENT: EOMI, VIRGIL, MMM Chest: Clear breath sounds bilaterally, no wheezes or crackles CVS: Regular rate and rhythm, normal heart sounds, no murmur Abdomen: Soft, non tender, not distended, normal bowel sounds Neuro: Awake, alert, orientedx3, conversing well, no aphasia. CN grossly intact. No pronator drift. Strength 5/5 on all extremities. Finger-nose test and heel- scott test intact bilaterally. Gait not checked. On right otoscopy, wax noted and could not visualize much of TM. No tragal or mastoid tenderness. Gait was not checked. Extremities: No edema Discharge Exam Constitutional WD/WN, vitals as above Respiratory normal respiratory effort, lungs clear to auscultation Cardiovascular RRR, no murmur, no edema Gastrointestinal (Abdomen) normal bowel sounds, soft, nontender, no hepatosplenomegaly Neurologic PERRL, EOMI, accommodation nl, no face palsy, no dysarthria no nystagmus Updated Medication List Medication Instructions Recorded Confirmed Type aspirin 81 mg chewable tablet 81 mg PO DAILY 11/06/18 04/14/24 History atorvastatin 40 mg tablet 40 mg PO QPM 11/06/18 04/14/24 History lisinopril 10 mg tablet 10 mg PO DAILY 11/06/18 04/14/24 History omeprazole 20 mg capsule,delayed 20 mg PO DAILY 11/06/18 04/14/24 History release trazodone 50 mg tablet 150 mg PO HS 11/06/18 04/14/24 History escitalopram oxalate 10 mg tablet 10 mg PO DAILY 03/09/20 04/14/24 History (Lexapro) ketoconazole 2 % shampoo 2 % topical DIRECTED 03/09/20 04/14/24 History Wellbutrin 100 mg PO DAILY 04/14/24 04/14/24 History amlodipine 5 mg tablet 10 mg (2 x 5 mg) PO DAILY #60 tabs 04/17/24 Rx cholecalciferol (vitamin D3) 25 25 mcg PO HS #30 caps 04/17/24 Rx mcg (1,000 unit) capsule fluticasone propionate 50 1 spray NA DAILY #15 grams 04/17/24 Rx mcg/actuation nasal spray,suspension methylprednisolone 4 mg tablet See Rx Instructions .Route 04/17/24 Rx .COMPLEX #8 tabs Hospital Stay Data Consultations 04/14/24 12:55 ED Decision to Admit Stat 04/14/24 13:08 Consult Neurology Routine Diagnostic Imagining Performed 04/14/24 11:25 CT angio head w con Stat CT angio neck with con Stat CT head/brain wo con Stat 04/14/24 13:08 MRI Brain [MR brain wo con] Routine 04/15/24 00:16 CT head/brain wo con Stat Pending Results Patient Have Any Pending Studies at Discharge: No Discharge Instructions Given to Patient (Per Discharging Provider) You were admitted for dizziness and headache. Stroke was ruled out. It was thought your symptoms were consistent with acute vestibular neuritis and as such you were started on steroids with notable improvement. You will continue a Medrol a dosing as follows: 4 mg orally as follows 04/17: take at 6pm, 9pm 04/18: take at 7am, 1pm, 9pm 04/19:take at 7am, 7pm 08/09:take at 7am You can continue flonase to help with congestion daily and sudafed over the c ounter as needed. You were also noted to be continuously hypertensive on home bp meds and your amlodipine was increased to 10mg daily. You will be sent with a walker and a prescription for outpatient physical therapy. Total Time Total Time Spent Total Time Spent (In Minutes): 35
[2024-04-18] MEDS ORDERED: methylPREDNISolone 4 MG TAB PO SCH (07:00)
[2024-04-19] MEDS ORDERED: methylPREDNISolone 4 MG TAB PO SCH (07:00)
[2024-04-20] MEDS ORDERED: methylPREDNISolone 4 MG TAB PO SCH (07:00)
== END 2024-04-17 14:04 | disposition home or self-care (01) | DRG 149 ==
LOC: EDINP 11:06 → ED 11:06 → SUATTDRO 13:03 → 2N 14:14

== ENCOUNTER 2024-11-02 11:48 | Inpatient (IN) ==
--- NOTE | 2024-11-02 11:43 | Emergency Department Note ---
History of Present Illness General Chief complaint: Stroke Alert Stated complaint: STROKE ALERT History of Present Illness Provider complaint: Strokelike symptoms 64-year-old male presents emergency department for strokelike symptoms. Patient reports that at 10:10 AM he noticed that his left arm felt heavy and he was having difficulty moving his left lower extremity. Patient does state that he fell secondary to difficulty ambulating. He states he is not sure if he hit his head. No blood thinners. Home Medications Medication Instructions Recorded Confirmed Type aspirin 81 mg chewable tablet 81 mg PO DAILY 11/06/18 04/14/24 History atorvastatin 40 mg tablet 40 mg PO QPM 11/06/18 04/14/24 History lisinopril 10 mg tablet 10 mg PO DAILY 11/06/18 04/14/24 History omeprazole 20 mg capsule,delayed 20 mg PO DAILY 11/06/18 04/14/24 History release trazodone 50 mg tablet 150 mg PO HS 11/06/18 04/14/24 History escitalopram oxalate 10 mg tablet 10 mg PO DAILY 03/09/20 04/14/24 History (Lexapro) ketoconazole 2 % shampoo 2 % topical DIRECTED 03/09/20 04/14/24 History Wellbutrin 100 mg PO DAILY 04/14/24 04/14/24 History amlodipine 5 mg tablet 10 mg (2 x 5 mg) PO DAILY #60 tabs 04/17/24 Rx cholecalciferol (vitamin D3) 25 25 mcg PO HS #30 caps 04/17/24 Rx mcg (1,000 unit) capsule fluticasone propionate 50 1 spray NA DAILY #15 grams 04/17/24 Rx mcg/actuation nasal spray,suspension methylprednisolone 4 mg tablet See Rx Instructions .Route 04/17/24 Rx .COMPLEX #8 tabs Allergies Allergy/AdvReac Type Severity Reaction Status Date / Time No Known Allergies Allergy Verified 03/09/20 06:51 Past Med/Surg History Problem List (Updated 11/02/24 @ 13:49 by eLx Hernandez MD) Stroke (Acute) GERD (gastroesophageal reflux disease) HLD (hyperlipidemia) HTN (hypertension) Stroke-like symptoms Acute vestibular neuritis Acute effusion of right ear (Acute) Ataxia (Acute) Impaired ambulation Pressure sensation in right ear History of hepatitis B Fall down steps (Acute) Facial abrasion (Acute) Work related injury (Acute) Family History Father Stroke Social History Smoking Status: Never smoker Second Hand Exposure: No; Do You Dip or Chew Tobacco: No; Hx Alcohol Use: Yes Alcohol type: hard liquor Alcohol type Comment: 1 x per month Hx Substance Use: No Preferred Language: Persian Communication Ability: Effective 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 Beliefs That Will Affect Care: None marital status: Current Living Situation: Alone current occupational status: employed Feels Safe at Home: Yes Assistive Devices: None Physical Exam Vital Signs Vital Signs - 24 hr 11/02/24 12:02 11/02/24 12:05 11/02/24 12:05 Temperature 36.9 C Temperature Source Oral Pulse Rate 63 63 Pulse Rate from SpO2 Sensor Respiratory Rate 18 Respiratory Effort / Characteristics Non-Labored Spontaneous Respiratory Depth Normal Respiratory Pattern Regular Blood Pressure 164/80 H Blood Pressure Mean 111 Pulse Oximetry 98 Oxygen Delivery Method Room Air Sepsis Recent Fever Within 48 Hours No Sepsis New/Unexplained Change in Mental Status No Sepsis Action Taken by Nursing No Action Required 11/02/24 12:09 11/02/24 12:12 11/02/24 12:19 Temperature Temperature Source Pulse Rate 62 62 Pulse Rate from SpO2 Sensor 63 61 Respiratory Rate 22 17 Respiratory Effort / Characteristics Respiratory Depth Respiratory Pattern Blood Pressure 141/83 H Blood Pressure Mean 90 Pulse Oximetry 98 98 Oxygen Delivery Method Sepsis Recent Fever Within 48 Hours Sepsis New/Unexplained Change in Mental Status Sepsis Action Taken by Nursing 11/02/24 12:30 11/02/24 12:45 Temperature Temperature Source Pulse Rate 57 L Pulse Rate from SpO2 Sensor 57 L Respiratory Rate 16 Respiratory Effort / Characteristics Respiratory Depth Respiratory Pattern Blood Pressure 134/93 Blood Pressure Mean 102 Pulse Oximetry 97 Oxygen Delivery Method Sepsis Recent Fever Within 48 Hours Sepsis New/Unexplained Change in Mental Status Sepsis Action Taken by Nursing Physical Exam HENT: Exam performed. - Head: Normocephalic and atraumatic. EYES: Conjunctivae and EOM are normal. Right eye exhibits no discharge. Left eye exhibits no discharge. No scleral icterus. NECK: Normal range of motion. Neck supple. No JVD present. CV: Normal rate, regular rhythm, normal heart sounds and intact distal pulses. There is no peripheral edema. Palpable radial pulses bue. PULM/CHEST: Effort normal and breath sounds normal. No respiratory distress. No stridor. no wheezes. no rales. NEURO: NIHSS: 9 (4:3, 5a:2, 6a:1, 7:1, 8:1, 10:1) SKIN: Abrasions to the left elbow and left foot. PSYCH: normal mood and affect. Behavior is normal. Judgment and thought content normal. Course Course 1142: Received a call about a potential stroke alert. Symptoms began at 1030 facial droop and left-sided weakness. Code stroke alert called from the field. 1149: The patient was evaluated in CT. A history and physical exam was performed 1206: CT of the head viewed by me shows no ICH. Dr. Virginia Sampson teleneurology will evaluate the patient. TNKase being prepared. 1224: Vital signs stable. After evaluation by [place] teleneurology Dr. Coleman it was determined by him that the patient's symptoms actually began yesterday. He does not advise to proceed with TNKase. He reviewed the patient's CTA images and there was concerned about a M2 occlusion however he discussed the images with Dr. Christiansen from radiology and there is no occlusion of M2 or M3. Dr. Coleman again recommends no TNKase but does recommend loading the patient with aspirin and Plavix and admission to the hospital. I asked the patient if he wants me to contact his family to give them an update on his condition and he stated he preferred that he do it himself. [facility] hospitalist will be consulted for admission. Administered Medications Discontinued Medications Aspirin (Aspirin 81 Mg Chew) 324 mg PO NOW STA Stop: 11/02/24 12:25 Last Admin: 11/02/24 12:57 Dose: 324 mg Documented By: MARYBETH Clopidogrel Bisulfate (Clopidogrel Bisulfate 300 Mg Tab) 300 mg PO NOW STA Stop: 11/02/24 12:25 Last Admin: 11/02/24 12:57 Dose: 300 mg Documented By: MARYBETH Tenecteplase 25 mg/ Syringe 5 mls @ 60 mls/min IV NOW ONE; Protocol Stop: 11/02/24 12:17 Last Admin: 11/02/24 12:30 Dose: Not Given Documented By: MARYBETH Ioversol (Optiray 320 125ml) 112 ml IV ONCE ONE Stop: 11/02/24 11:53 Last Admin: 11/02/24 11:52 Dose: 112 ml Documented By: ZHENG Miscellaneous (Stat Iv/Im) 1 each N/A NOW STA Stop: 11/02/24 12:06 Last Admin: 11/02/24 12:30 Dose: Not Given Documented By: MARYBETH Sodium Chloride (Sodium Chloride 0.9% 10ml Flush) 20 ml IV NOW STA Stop: 11/02/24 12:06 Last Admin: 11/02/24 12:30 Dose: Not Given Documented By: MARYBETH Critical Care Time Critical Care Time: Yes Total Critical Care Time: 40 I have personally spent greater than 40 minutes of critical care time in the direct management of this patient. This includes bedside care, interpretation of diagnostic studies, and testing, discussion with consultants, patient, and family members, and other required patient management activities. This 40 minutes is in excess of all separately billable procedures. Medical Decision Making Laboratory Data Attestation: I reviewed the patient's lab results. 11/02/24 12:04 11/02/24 12:04 Lab Results 11/02/24 11/02/24 Range/Units 12:04 12:06 WBC 7.84 (4.8-10.8) K/ul RBC 4.86 (4.70-6.10) M/uL Hgb 13.7 L (14.0-18.0) g/dl Hct 40.7 L (42.0-52.0) % MCV 83.7 (80.0-100.0) fL MCH 28.2 (25.0-34.0) pg MCHC 33.7 (32.0-36.0) g/dL RDW Std Deviation 40.1 (36.4-46.3) fL RDW Coeff of Tripp 13.2 (11.5-14.5) % Plt Count 208 (130-400) K/uL MPV 11.5 (9.4-12.4) fL Immature Gran % (Auto) 0.3 % Neut % (Auto) 79.0 % Lymph % (Auto) 10.8 % [place] % (Auto) 8.9 % Eos % (Auto) 0.5 % Baso % (Auto) 0.5 % Neut # (Auto) 6.19 (1.40-6.50) K/uL Lymph # (Auto) 0.85 L (1.20-3.40) K/uL [place] # (Auto) 0.70 H (0.11-0.59) K/uL Eos # (Auto) 0.04 (0.00-0.50) K/uL Baso # (Auto) 0.04 (0.00-0.20) K/uL Immature Gran # (Auto) 0.02 (0.01-0.20) K/uL PT 11.3 (9.0-12.0) Seconds INR 1.0 (0.9-1.1) APTT 26 (21-31) Seconds PTT Ratio 1.0 Sodium 141 (136-145) mmol/L Potassium 3.8 (3.5-5.1) mmol/L Chloride 106 (98-107) mmol/L Carbon Dioxide 27 (21-32) mmol/L Anion Gap 8 (3-11) BUN 18 (6-23) mg/dl Creatinine 0.92 (0.6-1.4) mg/dl Est Cr Clr Drug Dosing 113.9 ml/min eGFR 93.47 BUN/Creatinine Ratio 19.6 (10-20) Glucose 104 H (70-99(Fasting)) mg/dl POC Glucose 109 H (70-99) mg/dl Calcium 9.1 (8.6-10.3) mg/dl Magnesium 1.8 (1.7-2.4) mg/dl Total Bilirubin 0.7 (0.2-1.0) mg/dl AST 16 (13-39) U/L ALT 18 (7-52) U/L Alkaline Phosphatase 88 (34-104) U/L Troponin I High Sens 5.8 (0-20) pg/ml Total Protein 6.4 (6.0-8.3) gm/dl Albumin 4.1 (3.4-5.0) gm/dl Globulin 2.3 L (2.5-4.0) gm/dl Albumin/Globulin Ratio 1.8 (0.9-2) Imaging Data Attestation: I personally reviewed and interpreted this imaging study as follows: My Impression: CT head: No ICH Radiologist's Impression: Chest X-Ray 11/02/24 11:43 XR chest 1V portable CLINICAL HISTORY: neuro deficit, acute stroke suspected COMPARISON STUDY: 04/15/2009 FINDINGS: Single view portable chest is unchanged demonstrating no acute cardiopulmonary process. Mild cardiomegaly and pulmonary vascular congestion are present. There is no focal airspace consolidation or pleural effusion. There is no pneumothorax. IMPRESSION: Stable exam; no acute process ACT 112: Negative or not required by law. Electronically signed by: Karen Heranndez M.D. 11/02/2024 1:[address] 11/02/24 11:43 CT OF THE HEAD WITHOUT CONTRAST CLINICAL HISTORY: neuro deficit, acute stroke suspected COMPARISON STUDY: Head CT April 15, 2024. TECHNIQUE: Helical axial images of the head were obtained without IV contrast. Automated exposure control was utilized for the study. A dose lowering technique was utilized adhering to the principles of ALARA. FINDINGS: No acute intracranial hemorrhage, midline shift or mass effect is present. The ventricular system is unremarkable. The basal cisterns are patent. No extra-axial collections are present. There are no findings to suggest acute dural sinus thrombosis or acute territorial infarct. No significant calvarial abnormalities are present. Visualized portions of the sinuses and mastoid air cells are clear. IMPRESSION: No acute intracranial findings. ACT 112: Negative or not required by law. Electronically signed by: Trevor Christiansen M.D. 11/02/2024 12:16 PM Head CTA 11/02/24 11:43 CTA ANGIOGRAPHY OF THE HEAD CLINICAL HISTORY: neuro deficit, acute stroke suspected COMPARISON STUDY: CTA of the head April 14, 2024. TECHNIQUE: Helical axial images of the head were obtained following uneventful intravenous administration of 112 cc of Optiray. Sagittal and coronal reconstructions were viewed as well as maximal intensity projections on an independent 3-D workstation. Automated exposure control was utilized for the study. A dose lowering technique was utilized adhering to the principles of ALARA. FINDINGS: The bilateral M1, M2, A1 and A2 segments are patent. No vessel cut off is identified within the anterior posterior circulation. There is mild plaque within the bilateral cavernous carotids without stenosis. The right vertebral artery is dominant. As before, the basilar artery is diminutive. This is largely due to persistence of the bilateral posterior cerebral arteries. The posterior cerebral arteries are patent. Jugular system is normal. Basal cisterns are patent. There are no extra axial collections. IMPRESSION: No large vessel occlusion. No intracranial aneurysm. ACT 112: Negative or not required by law. Electronically signed by: Trevor Christiansen M.D. 11/02/2024 12:25 PM Neck CTA 11/02/24 11:43 CT angio neck with con CLINICAL HISTORY: neuro deficit, acute stroke suspected. COMPARISON STUDY: 04/14/2024 and unchanged since the prior examination. TECHNIQUE: Following the IV administration of 112 of Optiray, CT angiogram of the neck was performed from the aortic arch to the skull base. Images are reviewed in the axial, sagittal, and coronal planes. 3-D MIPS images are created and assessed. IV contrast was administered without complication. All measurements were calculated based on NASCET criteria. A dose lowering technique was utilized adhering to the principles of ALARA. CT DOSE: 1994.15 mGy.cm FINDINGS: There is no evidence of occlusive disease are hemodynamically significant stenosis. Calcified plaques within the proximal ICAs are noted bilaterally with no greater than 20% stenosis. The ECAs are patent. Posterior circulation demonstrates right vertebral artery dominance. The posterior circulation including the lower basilar artery is somewhat diminutive IMPRESSION: No change since the prior examination. No evidence of hemodynamically significant stenosis or occlusion. ACT 112: Negative or not required by law. The above report was generated using voice recognition software. It may contain grammatical, syntax or spelling errors. Electronically signed by: Karen Hernandez M.D. 11/02/2024 12:[address] 11/02/24 11:53 CT cervical spine wo con CT DOSE: 1994.15 CLINICAL HISTORY: Ground-level fall; suspected stroke COMPARISON: None TECHNIQUE: Multiple axial CT images of the cervical spine were obtained without contrast. Sagittal and coronal reconstructions were done. A dose lowering technique was utilized adhering to the principles of ALARA. FINDINGS: There is no acute traumatic cervical spine injury identified. There is no fracture or traumatic malalignment. The prevertebral soft tissues are not swollen. The odontoid and atlantoaxial articulation are intact. 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 IMPRESSION: No acute traumatic cervical spine injury. ACT 112: Negative or not required by law. The above report was generated using voice recognition software. It may contain grammatical, syntax or spelling errors. Electronically signed by: Karen Hernandez M.D. 11/02/2024 12:17 PM ECG Data Attestation: I personally reviewed and interpreted this ECG as follows: Rate (beats per minute): 60 Rhythm: + normal sinus ECG Intervals/blocks: + Normal ME and + Normal QT-c ECG ST segments: + Normal ST segments [facility] Narrative 1142: Received a call about a potential stroke alert. Symptoms began at 1030 facial droop and left-sided weakness. Code stroke alert called from the field. 1149: The patient was evaluated in CT. A history and physical exam was performed 1206: CT of the head viewed by me shows no ICH. Dr. Virginia Sampson teleneurology will evaluate the patient. TNKase being prepared. 1224: Vital signs stable. After evaluation by [place] teleneurology Dr. Coleman it was determined by him that the patient's symptoms actually began yesterday. He does not advise to proceed with TNKase. He reviewed the patient's CTA images and there was concerned about a M2 occlusion however he discussed the images with Dr. Christiansen from radiology and there is no occlusion of M2 or M3. Dr. Coleman again recommends no TNKase but does recommend loading the patient with aspirin and Plavix and admission to the hospital. I asked the patient if he wants me to contact his family to give them an update on his condition and he stated he preferred that he do it himself. [facility] hospitalist will be consulted for admission. Impression & Plan Stroke Discharge Plan Visit Data Chief Complaint: Stroke Alert Stated Complaint: STROKE ALERT ED Provider: Lex Hernandez Discharge Problem: Stroke Patient Disposition: Admitted As Inpatient Forms Stand Alone Forms: My [facility] Prescriptions Prescriptions: No Action ketoconazole 2 % Shampoo 2 % TOPICAL DIRECTED escitalopram oxalate [Lexapro] 10 mg Tablet 10 mg PO DAILY atorvastatin 40 mg Tablet 40 mg PO QPM trazodone 50 mg Tablet 150 mg PO HS lisinopril 10 mg Tablet 10 mg PO DAILY omeprazole 20 mg Capsule,Delayed Release(Dr/Ec) 20 mg PO DAILY aspirin 81 mg Tablet,Chewable 81 mg PO DAILY Wellbutrin 50 mg 100 mg PO DAILY methylprednisolone 4 mg Tablet See Rx Instructions .ROUTE .COMPLEX Qty: 8 0RF Rx Instructions: 4 mg orally as follows 04/17: take at 6pm, 9pm 04/18: take at 7am, 1pm, 9pm 04/19:take at 7am, 7pm 08/09:take at 7am fluticasone propionate 50 mcg/actuation [place],Suspension 1 spray NA DAILY Qty: 15 0RF cholecalciferol (vitamin D3) 25 mcg (1,000 unit) Capsule 25 mcg PO HS Qty: 30 0RF amlodipine 5 mg Tablet 10 mg PO DAILY Qty: 60 0RF Referrals Referrals: Luis Candelario, ROSIN BARREL FILLER-[facility] [Primary Care Provider] - Discharge Problem: Stroke Qualifiers: CVA mechanism: unspecified Qualified Code(s): I63.9 - Cerebral infarction, unspecified
[2024-11-02] MEDS: OPTIRAY 320 125ml IV ONE (11:52)
[2024-11-02] MEDS ORDERED: No Aspirin within 24hrs of THROMBOLYTIC-Stroke PO SCH (12:15)
--- NOTE | 2024-11-02 12:18 | CT Scan Report ---
CT OF THE HEAD WITHOUT CONTRAST CLINICAL HISTORY: neuro deficit, acute stroke suspected COMPARISON STUDY: Head CT April 15, 2024. TECHNIQUE: Helical axial images of the head were obtained without IV contrast. Automated exposure con trol was utilized for the study. A dose lowering technique was utilized adhering to the principles o f ALARA. FINDINGS: No acute intracranial hemorrhage, midline shift or mass effect is present. The ventricular system is unremarkable. The basal cisterns are patent. No extra-axial collections are present. There are no findings to suggest acute dural sinus thrombosis or acute territorial infarct. No significant calvarial abnormalities are present. Visualized portions of the sinuses and mastoid air cells are norm ar. IMPRESSION: No acute intracranial findings. ACT 112: Negative or not required by law. Electronically signed by: Trevor Christiansen M.D. 11/02/2024 12:16 PM
--- NOTE | 2024-11-02 12:18 | CT Scan Report ---
CT cervical spine wo con CT DOSE: 1995.15 CLINICAL HISTORY: Ground-level fall; suspected stroke COMPARISON: None TECHNIQUE: Multiple axial CT images of the cervical spine were obtained without contrast. Sagittal an d coronal reconstructions were done. A dose lowering technique was utilized adhering to the principle s of ALARA. FINDINGS: There is no acute traumatic cervical spine injury identified. There is no fracture or traum atic malalignment. The prevertebral soft tissues are not swollen. The odontoid and atlantoaxial artic ulation are intact. 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 IMPRESSION: No acute traumatic cervical spine injury. ACT 112: Negative or not required by law. The above report was generated using voice recognition software. It may contain grammatical, syntax o r spelling errors. Electronically signed by: Karen Hernandez M.D. 11/02/2024 12:17 PM
--- NOTE | 2024-11-02 12:28 | CT Scan Report ---
CTA ANGIOGRAPHY OF THE HEAD CLINICAL HISTORY: neuro deficit, acute stroke suspected COMPARISON STUDY: CTA of the head April 14, 2024. TECHNIQUE: Helical axial images of the head were obtained following uneventful intravenous administr ation of 112 cc of Optiray. Sagittal and coronal reconstructions were viewed as well as maximal inten sity projections on an independent 3-D workstation. Automated exposure control was utilized for the study. A dose lowering technique was utilized adhering to the principles of ALARA. FINDINGS: The bilateral M1, M2, A1 and A2 segments are patent. No vessel cut off is identified within the anterior posterior circulation. There is mild plaque within the bilateral cavernous carotids wit hout stenosis. The right vertebral artery is dominant. As before, the basilar artery is diminutive. T his is largely due to persistence of the bilateral posterior cerebral arteries. The posterior c erebral arteries are patent. Jugular system is normal. Basal cisterns are patent. There are no extra axial collections. IMPRESSION: No large vessel occlusion. No intracranial aneurysm. ACT 112: Negative or not required by law. Electronically signed by: Trevor Christiansen M.D. 11/02/2024 12:25 PM
--- NOTE | 2024-11-02 12:28 | CT Scan Report ---
CT angio neck with con CLINICAL HISTORY: neuro deficit, acute stroke suspected. COMPARISON STUDY: 04/14/2024 and unchanged since the prior examination. TECHNIQUE: Following the IV administration of 112 of Optiray, CT angiogram of the neck was performed from the aortic arch to the skull base. Images are reviewed in the axial, sagittal, and coronal plane s. 3-D MIPS images are created and assessed. IV contrast was administered without complication. All m easurements were calculated based on NASCET criteria. A dose lowering technique was utilized adherin g to the principles of ALARA. CT DOSE: 1995.15 mGy.cm FINDINGS: There is no evidence of occlusive disease are hemodynamically significant stenosis. Calcifi ed plaques within the proximal ICAs are noted bilaterally with no greater than 20% stenosis. The ECAs are patent. Posterior circulation demonstrates right vertebral artery dominance. The posterior circulation includ ing the lower basilar artery is somewhat diminutive IMPRESSION: No change since the prior examination. No evidence of hemodynamically significant stenosi s or occlusion. ACT 112: Negative or not required by law. The above report was generated using voice recognition software. It may contain grammatical, syntax o r spelling errors. Electronically signed by: Karen Hernandez M.D. 11/02/2024 12:27 PM
[2024-11-02] MEDS: SODIUM CHLORIDE 0.9% 10ML FLUSH IV STA (12:30)
[2024-11-02] MEDS: TENECTEPLASE 25 MG in SYRINGE 0 ML IV ONE (12:30)
[2024-11-02] MEDS: STAT IV/IM STA (12:30)
--- NOTE | 2024-11-02 12:41 | History & Physical Report ---
Date of Service November 02, 2024 Assessment & Plan (1) Stroke-like symptoms: (2) HTN (hypertension): (3) HLD (hyperlipidemia): (4) Gout: (5) GERD (gastroesophageal reflux disease): Plan Stroke like Symptoms Left sided Upper and lower extremity weakness Facial Droop Ataxia - Admit to PCU for observation - Stroke order set completed, no indication for thrombolytic as sx started about 24 hours ago at this time - CT head reviewed and is negative - MRI brain wo contrast ordered - Tele-neurology contacted by the ER- Recs aspirin and plavix, given first dose in the ER, continue asa 81 daily, plavix 75 mg and atorvastatin 80 mg - Will allow permissive hypertension with SBP 140-170 - Echo reviewed personally in outpatient epic chart, stress echo from 2011, LVEF of 60 to 64%, no PFO or ASD noted. - Neurology consulted - PT/OT and speech therapy consults placed HTN - Allow for permissive HTN, will hold amlodipine and lisinopril for now HLD - Will check lipid panel with am labs - Check A1C for completeness Toe wound - as pt injured himself this AM in bathroom - start ppx abx, wound care inpt DVT ppx: teds, scds Lines: PIV x 2 FEN/GI: NPO until passes bedside swallow CODE: Conditional code -- no intubation. Dispo: From home, likely to remain in the hospital x 1-2 days I spent a total of 75 minutes with greater than 50% of that time face to face with the patient, personally reviewing all current laboratories, imaging studies, past medication reconciliation, outpatient chart review, and discussion with specialists to collaborate care for the patient excluding time spent in the performance of separately billed services or time spent by another provider/QHP. Please see attending documentation for corrections and/or additions. History of Present Illness Chief Complaint: Facial droop, left upper and lower extremity weakness, ataxia Primary Care Provider: Luis Candelario, RUCHI-C This is a 64-year-old male with PMHx of HTN, HLD, sleep apnea, GERD, retinal detachment and hx of vestibular neuritis in April 2024, gout, who presents to the hospital with acute onset of strokelike symptoms which began yesterday. He thought initially his symptoms were like the previous bout of vestibular neuritis and thought this would get better. He was in rehab for such back then. Patient admits noticing being off balance early afternoon around 1 -2 pm yesterday. This morning around 8 am he felt his left hand was "heavy" and had difficulty dialing numbers on his phone. He has a little bit of a lisp at baseline with speech but pt states that this is his normal speech and there are no acute changes. This morning he fell this morning in his house when in the bathroom and fell on the ground twice, hit his left great toe and was bleeding which is now bandages. He denies hitting his head. He lives at home alone. Pt then called 911. Pt denies smoking or tobacco use. Occasional liquor drink 1x per month. 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 Pt has left sided facial droop, left-sided upper and lower extremity weakness, ataxia. And presented to the hospital here this morning. He thinks symptoms are slowly improving since being here. Pt reports that he did take his morning medications today which includes asa 81 mg and atorvastatin [address] imaging of the head and neck are negative. He was dosed with aspirin full dose and loaded with plavix 300 mg in the ER today. Allergies Allergy/AdvReac Type Severity Reaction Status Date / Time No Known Allergies Allergy Verified 03/09/20 06:51 Home Medications Medication Instructions Recorded Confirmed Type aspirin 81 mg chewable tablet 81 mg PO DAILY 11/06/18 11/02/24 History atorvastatin 40 mg tablet 40 mg PO QPM 11/06/18 11/02/24 History lisinopril 10 mg tablet 40 mg PO DAILY 11/06/18 11/02/24 History omeprazole 20 mg capsule,delayed 20 mg PO DAILY 11/06/18 11/02/24 History release trazodone 50 mg tablet 150 mg PO HS 11/06/18 11/02/24 History escitalopram oxalate 10 mg tablet 20 mg PO DAILY 03/09/20 11/02/24 History (Lexapro) ketoconazole 2 % shampoo 2 % topical DIRECTED 03/09/20 11/02/24 History Wellbutrin 100 mg PO DAILY 04/14/24 11/02/24 History amlodipine 5 mg tablet 10 mg (2 x 5 mg) PO DAILY #60 tabs 04/17/24 11/02/24 Rx fluticasone propionate 50 1 spray NA DAILY #15 grams 04/17/24 11/02/24 Rx mcg/actuation nasal spray,suspension cholecalciferol (vitamin D3) 25 50 mcg PO HS 11/02/24 11/02/24 History mcg (1,000 unit) capsule Past Med/Surg History Problem List (Updated 11/02/24 @ 18:23 by Chasity Cedeno MD) Acute ischemic VBA brainstem stroke Stroke (Acute) GERD (gastroesophageal reflux disease) HLD (hyperlipidemia) HTN (hypertension) Stroke-like symptoms Acute vestibular neuritis Acute effusion of right ear (Acute) Ataxia (Acute) Impaired ambulation Pressure sensation in right ear History of hepatitis B Fall down steps (Acute) Facial abrasion (Acute) Work related injury (Acute) Family History Father Stroke Social History Smoking Status: Never smoker Second Hand Exposure: No; Do You Dip or Chew Tobacco: No; Tobacco Cessation Education Requested by Patient: No Hx Alcohol Use: No Hx Substance Use: No Preferred Language: Faroese Communication Ability: Effective Cord Splicer Required: No Beliefs That Will Affect Care: None marital status: Current Living Situation: Alone current occupational status: employed Other Information That Helps Us Care for You: No Feels Safe at Home: Yes Safety Concerns: Feels Safe At This Time Assistive Devices: None Review of Systems Review of Systems: Constitutional: No fever, sweats or chills Eyes: No diplopia, no worsening or blurred vision ENT: normal hearing, no trouble swallowing Respiratory: No cough, sputum, dyspnea at rest or on exertion Cardiovascular: No chest pain, tightness or palpitations Abdomen: No pain, nausea, vomiting, diarrhea or constipation Musculoskeletal: No joint pain, calf pain, swelling Neurologic: As per HPI, left sided upper and lower extremity weakness, no numbness/tingling, + balance problems Psychiatric: No anxiety or depression Skin: No rash or itch Physical Exam Physical Exam: General: awake, alert, no apparent distress, obese white male Head: Normocephalic, atraumatic ENT: PERRL, EOMI, no pharyngeal exudate, mucous membranes moist Chest: Clear to auscultation, on room air, no adventitious breath sounds Cardiac: Regular rate and rhythm, + TRACY, no JVD, normal peripheral pulses, good capillary refill Abdominal: NABS x 4 quadrants, soft, nondistended, nontender to palpation, no rebound or guarding Extremities: Normal inspection, no peripheral edema or erythema, calfs nontender to palpation Psych: Normal mood and affect Neuro: speech with lispe is baseline, AAO x 3, strength intact, left hand rated 4/5 with squeeze compared toright, left leg strength rated 4/5 compared to the right, left sided facial droop with mouth slightly present. + pronator drift with the left arm. CN II-XII are intact. Can perform rapid alternating movements but is slightly slower with the left hand. Can follow finger with eyes, no nystagmus. Reports chronically blurred vision s/p retinal detachment surgeries in the left eye at baseline, no peripheral sensory deficits Results & Data Results & Data Vital Signs (Past 12 Hours) Vital Signs Temp Pulse Resp Pulse Ox O2 Del Method 11/02/24 12:05 63 11/02/24 12:02 36.9 C 63 18 98 Room Air Laboratory Results 11/02/24 12:06 POC Glucose 109 H Diagnostic Findings Head CT 11/02/24 11:43 CT OF THE HEAD WITHOUT CONTRAST CLINICAL HISTORY: neuro deficit, acute stroke suspected COMPARISON STUDY: Head CT April 15, 2024. TECHNIQUE: Helical axial images of the head were obtained without IV contrast. Automated exposure control was utilized for the study. A dose lowering technique was utilized adhering to the principles of ALARA. FINDINGS: No acute intracranial hemorrhage, midline shift or mass effect is present. The ventricular system is unremarkable. The basal cisterns are patent. No extra-axial collections are present. There are no findings to suggest acute dural sinus thrombosis or acute territorial infarct. No significant calvarial abnormalities are present. Visualized portions of the sinuses and mastoid air cells are clear. IMPRESSION: No acute intracranial findings. ACT 112: Negative or not required by law. Electronically signed by: Trevor Chirstiansen M.D. 11/02/2024 12:16 PM Head CTA 11/02/24 11:43 CTA ANGIOGRAPHY OF THE HEAD CLINICAL HISTORY: neuro deficit, acute stroke suspected COMPARISON STUDY: CTA of the head April 14, 2024. TECHNIQUE: Helical axial images of the head were obtained following uneventful intravenous administration of 112 cc of Optiray. Sagittal and coronal reconstructions were viewed as well as maximal intensity projections on an independent 3-D workstation. Automated exposure control was utilized for the study. A dose lowering technique was utilized adhering to the principles of ALARA. FINDINGS: The bilateral M1, M2, A1 and A2 segments are patent. No vessel cut off is identified within the anterior posterior circulation. There is mild plaque within the bilateral cavernous carotids without stenosis. The right vertebral artery is dominant. As before, the basilar artery is diminutive. This is largely due to persistence of the bilateral posterior cerebral arteries. The posterior cerebral arteries are patent. Jugular system is normal. Basal cisterns are patent. There are no extra axial collections. IMPRESSION: No large vessel occlusion. No intracranial aneurysm. ACT 112: Negative or not required by law. Electronically signed by: Trevor Christiansen M.D. 11/02/2024 12:25 PM Neck CTA 11/02/24 11:43 CT angio neck with con CLINICAL HISTORY: neuro deficit, acute stroke suspected. COMPARISON STUDY: 04/14/2024 and unchanged since the prior examination. TECHNIQUE: Following the IV administration of 112 of Optiray, CT angiogram of the neck was performed from the aortic arch to the skull base. Images are reviewed in the axial, sagittal, and coronal planes. 3-D MIPS images are created and assessed. IV contrast was administered without complication. All measurements were calculated based on NASCET criteria. A dose lowering technique was utilized adhering to the principles of ALARA. CT DOSE: 1994.15 mGy.cm FINDINGS: There is no evidence of occlusive disease are hemodynamically significant stenosis. Calcified plaques within the proximal ICAs are noted bilaterally with no greater than 20% stenosis. The ECAs are patent. Posterior circulation demonstrates right vertebral artery dominance. The posterior circulation including the lower basilar artery is somewhat diminutive IMPRESSION: No change since the prior examination. No evidence of hemodynamically significant stenosis or occlusion. ACT 112: Negative or not required by law. The above report was generated using voice recognition software. It may contain grammatical, syntax or spelling errors. Electronically signed by: Karen Hernandez M.D. 11/02/2024 12:[address] 11/02/24 11:53 CT cervical spine wo con CT DOSE: 1994.15 CLINICAL HISTORY: Ground-level fall; suspected stroke COMPARISON: None TECHNIQUE: Multiple axial CT images of the cervical spine were obtained without contrast. Sagittal and coronal reconstructions were done. A dose lowering technique was utilized adhering to the principles of ALARA. FINDINGS: There is no acute traumatic cervical spine injury identified. There is no fracture or traumatic malalignment. The prevertebral soft tissues are not swollen. The odontoid and atlantoaxial articulation are intact. 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 IMPRESSION: No acute traumatic cervical spine injury. ACT 112: Negative or not required by law. The above report was generated using voice recognition software. It may contain grammatical, syntax or spelling errors. Electronically signed by: Karen Hernandez M.D. 11/02/2024 12:17 PM Code Status & VTE Plan Code Status Conditional - no intubation Supervising Physician Co-Signing Physician Notes Pt seen and examined by me , care coordinated w/ Marline Eisenberg PA-C, pls refer to her note above for further detail. 64 yo M with hx of HTN, HLD, sleep apnea, GERD, retinal detachment and hx of vestibular neuritis in April 2024 who presents with LLE and LUE weakness which began yesterday. CT imaging of the head and neck negative.Pt was seen by Tele neuro and ASA, plavix was recommended, pt is already on statin. On evaluation pt is alert oriented , answers appropriately, has a lisp which he states is chronic. Reports his LLE feels better and he can lift it up better than before, he is moving his LUE however says it feels weaker and not getting better. Pt underwent brain MRI and [facility] - pt has a pontine stroke- management as already described above. Cont. to closely monitor. MD Keagan
[2024-11-02 12:51] LABS: Basophils # (auto) 0.04 K/uL (0.00-0.20); Basophils % (auto) 0.5 %; Eosinophils # (auto) 0.04 K/uL (0.00-0.50); Eosinophils % (auto) 0.5 %; Hematocrit (blood only) 40.7 % (42.0-52.0); Hemoglobin 13.7 g/dl (14.0-18.0); Immature Granulocytes # (auto) 0.02 K/uL (0.01-0.20); Immature Granulocytes % (auto) 0.3 %; Lymphocytes # (auto) 0.85 K/uL (1.20-3.40); Lymphocytes % (auto) 10.8 %; Mean Corpuscular Hemoglobin 28.2 pg (25.0-34.0); Mean Corpuscular Hgb Conc 33.7 g/dL (32.0-36.0); Mean Corpuscular Volume 83.7 fL (80.0-100.0); Mean Platelet Volume 11.5 fL (9.4-12.4); Monocytes % (auto) 8.9 %; Neutrophils # (auto) 6.19 K/uL (1.40-6.50); Platelet Count 208 K/uL (130-400); RDW Coefficient of Variation 13.2 % (11.5-14.5); RDW Standard Deviation 40.1 fL (36.4-46.3); Red Blood Count 4.86 M/uL (4.70-6.10); White Blood Count 7.84 K/ul (4.8-10.8)
[2024-11-02] MEDS: CLOPIDOGREL BISULFATE 300 MG TAB PO STA (12:57)
[2024-11-02] MEDS: ASPIRIN 81 MG CHEW PO STA (12:57)
--- NOTE | 2024-11-02 12:58 | Electrocardiogram Report ---
Test Reason : Blood Pressure : */* mmHG Vent. Rate : 60 BPM Atrial Rate : 60 BPM P-R Int : 170 ms QRS Dur : 76 ms QT Int : 442 ms P-R-T Axes : 51 31 51 degrees QTcB Int : 442 ms Normal sinus rhythm Normal ECG When compared with ECG of 14-Apr-2024 11:29, No significant change was found Confirmed by Eric Bro ([id number]) on 11/02/2024 12:57:22 PM Referred By: REFERRED SELF Confirmed By: Eric Bro
[2024-11-02 13:09] LABS: Albumin Globulin Ratio 1.8 (0.9-2); Albumin Level 4.1 gm/dl (3.4-5.0); BUN Creatinine Ratio 19.6 (10-20); Bilirubin,Total 0.7 mg/dl (0.2-1.0); Calcium 9.1 mg/dl (8.6-10.3); Creatinine Clr Calc Pharmacy 113.9 ml/min; Globulin 2.3 gm/dl (2.5-4.0); Magnesium 1.8 mg/dl (1.7-2.4); Potassium 3.8 mmol/L (3.5-5.1); Total Protein 6.4 gm/dl (6.0-8.3)
--- NOTE | 2024-11-02 13:09 | XRay Report ---
XR chest 1V portable CLINICAL HISTORY: neuro deficit, acute stroke suspected COMPARISON STUDY: 04/15/2009 FINDINGS: Single view portable chest is unchanged demonstrating no acute cardiopulmonary process. Mil d cardiomegaly and pulmonary vascular congestion are present. There is no focal airspace consolidatio n or pleural effusion. There is no pneumothorax. IMPRESSION: Stable exam; no acute process ACT 112: Negative or not required by law. Electronically signed by: Karen Hernandez M.D. 11/02/2024 1:08 PM
[2024-11-02 13:14] LABS: Troponin I High Sensitivity 5.8 pg/ml (0-20)
[2024-11-02 13:17] LABS: Partial Thromboplastin Time 26 Seconds (21-31); Prothrombin Time 11.3 Seconds (9.0-12.0)
[2024-11-02] MEDS ORDERED: NON-FORMULARY MEDICATION (Ketoconazole 2 % Shampoo) TOP SCH (14:25)
[2024-11-02] MEDS ORDERED: ONDANSETRON INJ 2 MG/ML 2 ML VIAL IV PRN (14:25)
[2024-11-02] MEDS ORDERED: PHARMACIST DISCHARGE MED REC CONSULT PRN (14:25)
[2024-11-02] MEDS ORDERED: cefTRIAXone SODIUM 1,000 MG/50 ML BAG IV SCH (15:00)
[2024-11-02] MEDS: ATORVASTATIN 40 MG TAB PO ONE (15:36)
[2024-11-02] MEDS: cefTRIAXone SODIUM 2,000 MG/50 ML BAG IV SCH (15:36)
[2024-11-02] MEDS: LORazepam 0.5 MG TAB PO STA (15:36)
--- OUTSIDE RECORDS SUMMARY | 2024-11-02 15:47 | External Medical Summary ---
Author Name Unknown Address Unknown Organization [id number]:LABORATORY [facility] [place] - [address] [place] [id number] Laboratory Report Ordering Provider Test Date Status JETHRO WOOD 05/16/2024 15:24:50 Final Normal: <30 mg/g creatinine< br/>High: 30-300 mg/g creatinine
Very High: >300 mg/g creatinine
Nephrotic: >2200 mg/g creatinine Observation Date Value Abnormality Reference (Units ) Status Albumin, Urine 05/16/2024 15:24:50 3.00 (mg/dL) Final Creatinine, Urine 05/16/2024 15:24:50 218 (mg/dL) Final Albumin/Creatinine [Mass Ratio] in Urine 05/16/2024 15:24:50 14 <30 (mg/g Creat) Final Performing Location LAB[facility]ORY [facility] [place] - [address] [place] [id number]
--- OUTSIDE RECORDS SUMMARY | 2024-11-02 15:47 | External Medical Summary ---
Author Name Unknown Address Unknown Organization [id number]:LAB[facility]ATORY [facility] [place] - [address] [facility] [address] Laboratory Report Ordering Provider Test Date Status JETHRO WOOD 05/16/2024 15:24:43 Final Observation Date Value Abnormality Reference (Units ) Status BUN 05/16/2024 15:24:43 15 6-20 (mg/dL) Final Creatinine 05/16/2024 15:24:43 1.0 0.6-1.2 (mg/dL) Final Glomerular filtration rate/1.73 sq M.predicted [Volume Rate/Area] in Serum, Plasma or Blood by Creatinine-based formula (CKD-EPI) 05/16/2024 15:24:43 84 >=60 (mL/min) Final eGFR is calculated based on the CKD-EPI 2020 equation. Sodium 05/16/2024 15:24:43 143 135-146 (m mol/L) Final Potassium 05/16/2024 15:24:43 4.1 3.5-5.1 (m mol/L) Final Cl 05/16/2024 15:24:43 106 98-107 (mm ol/L) Final CO2 05/16/2024 15:24:43 26 22-32 (mmo l/L) Final Anion gap 05/16/2024 15:24:43 11 7-15 (mmol /L) Final Glucose 05/16/2024 15:24:43 95 70-120 (mg /dL) Final Albumin 05/16/2024 15:24:43 4.7 3.8-5.0 (g /dL) Final AST (Aspartate aminotransferase) 05/16/2024 15:24:43 21 10-50 (U/L) Final Alk Phos 05/16/2024 15:24:43 125 35-130 (U/ L) Final Bilirubin, Total 05/16/2024 15:24:43 0.7 <=1 .2 (mg/dL) Final Calcium 05/16/2024 15:24:43 9.6 8.4-10.2 ( mg/dL) Final Protein 05/16/2024 15:24:43 6.5 6.0-8.3 (g /dL) Final ALT (Alanine aminotransferase) 05/16/2024 15:24:43 28 10-50 (U/L) Final Performing Location [facility] [place] - [address] [facility] [address]
--- OUTSIDE RECORDS SUMMARY | 2024-11-02 15:47 | External Medical Summary | Summary of Care ---
Author Name Unknown Organization [facility] Address [address] [place] [address] Phone [phone] Care Team Providers Care Valve Inspector Name Role Phone Aaliyah Toure PA-C Primary Care Provider [phone] Reason for Visit * Reason Comments Outpatient Testing Encounter Details Date Type Department Care Team (Late st Contact Info) Description 05/16/2024 3:40 PM EDT Laboratory [facility], [place] [address] [place] [address] [place] [address] [place] [address] HTN, goal below 140/90 Allergies Active Allergy Reactions Criticality Noted Date Comments Lactose 03/31/2021 Sertraline Hcl Diarrhea 12/23/2008 Other reaction(s): Impotence documented as of this encounter (statuses as of 05/16/2024) Medications Medication Sig Dispensed Refills Start Date End Date Status OMEPRAZOLE 20 MG PO CPDR One pill by mouth once a day 1 hour before the first meal of the day 30 5 09/09/2008 Active AMLODIPINE BESYLATE 5 MG PO TABS Take 2 Tablets by mouth. Active ASPIRIN 81 MG PO TABS one by mouth once a day 30 Tab 0 12/13/2011 Active Escitalopram Oxalate 20 MG Oral Tablet (LEXAPRO) Take 1 Tablet by mouth in the morning. Active Lisinopril 20 MG Oral Tablet (PRINIVIL) Take 2 Tablets by mouth in the morning. Active Atorvastatin Calcium 40 MG Oral Tablet (LIPITOR) Take 2 Tablets by mouth at bedtime. Active Meclizine HCl 12.5 MG Oral Tablet (Antivert) Take 1 Tablet by mouth as needed. Active BiPAP every night at bedtime. Active buPROPion HCl ER (SR) 150 MG Oral Tablet Extended Release 12 Hour (Wellbutrin SR) Take 1 Tablet by mouth in the morning. 30 Tab 5 03/31/2021 Active Vitamin D3 25 MCG Oral Tablet Take by mouth at bedtime. 03/31/2021 Active Clobetasol Propionate 0.05 % External [...] as needed for Erectile Dysfunction. 10 Tab 03/31/2021 Active traZODone HCl 100 MG Oral Tablet (Desyrel) Take 1 Tablet by mouth at bedtime. 60 Tab 5 03/31/2021 Active Fluticasone Propionate 50 MCG/ACT Nasal Suspension (Flonase Allergy Relief) Administer 1 [place] into nostril in the morning. Active Ondansetron 4 MG Oral Tablet Disintegrating (Zofran) Place 1 Tablet on tongue every 8 hours as needed for Nausea. dissolve on tongue. 20 Tablet 1 04/20/2024 Active Scopolamine 1 MG/3DAYS Transdermal Patch 72 Hour (Transderm-Scop)Indic ations:Vestibular neuronitis, unspecified laterality Place 1 Patch over 72 hours topically on the skin every 3 days. 4 hours before event. May replace every 3 days. . 4 Patch 1 04/20/2024 Active documented as of this encounter (statuses as of 05/16/2024) Active Problems Problem Noted Date Diagnosed Date [...] as of this encounter (statuses as of 05/16/2024) Resolved Problems Problem Noted Date Diagnosed Date Resolved Date Severe obesity with body mas s index (BMI) of 35.0 to 39.9 with serious comorbidity 02/23/2010 Overview: Per Obesity Protocol, #19 ICD-10 update of inactive diagnosis documented as of this encounter (statuses as of 05/16/2024) Immunizations Name Administration Dates Next Due Anthrax Vaccine, Adjuvanted (Cyfendus) 3 COVID-19 mRNA, LNP-s, No Pre serve, 2-Dose Series (Moderna) 02/12/2022,07/21/2021,10/07/2020,09/10 HEP A - Hepatitis A (Adult > 18 yrs) 02/28/1997 HEP B - Hepatitis B (Adole/H igh Risk Ped, 11-15 yrs 08/22/2019 HepA Inact/HepB Recomb>=18yrs old 02/12/2005 MMR - Measles/Mumps/Rubella Vaccine 10/23/2001 Meningococcal Polysaccharide Vaccine ([place]) 04/20/2003 OPV - Polio Virus Vaccine (Oral) 02/05/1983 RSV Vac., Recomb, Adjuvant, PF,0.5 Ml (Arexvy) 06/29/2023 Seasonal Influenza, Trivalen t, (IIV3), with Preserv, (Fluzone) 06/16/2012 TDAP (age 10 and older)(Boostrix) 05/04/2022 TDAP, Age 7 and older, IM (Adacel) 12/21/2010 Vaccinia (Smallpox) 01/25/2003 Yellow Fever Vaccine, Live (YF-Vax) 02/12/2005,0 10/12/2003,06/26/1993 Zoster Vaccine Recombinant (Shingrix) 12/06/2019 ,06/07/2019 documented as of this encounter Social History Tobacco Use Types Packs/Day Years Used Date Smoking Tobacco: Never Smokeless Tobacco: Never Alcohol Use Standard Drinks/Week Comments No 0 (1 standard drink = 0.6 oz pur e alcohol) maybe 1 drink a week at most Utilities Answer Date Recorded Do you have trouble paying y our heating, water, or electric bill? (Adult - for ages 18 years and over) Not on file 02/28/2024 Is your family able to pay t he heat, water, or electric bill? (Household - for ages 0-17 years) Not on file 02/28/2024 Does your family have access to good internet? (Household - for ages 0-17 years) Not on file 02/28/2024 Social Connections Answer Date Recorded How often do you feel lonely or isolated from those around you? (Adult - for ages 18 years and over) Not on file 02/28/2024 Sex and Gender Information Value Date Recorded Sex Assigned at Male 01/16/2024 7:30 PM EDT Gender Identity Male 01/16/2024 7:30 PM EDT Sexual Orientation Straight 01/16/2024 7: 30 PM EDT Job Start Date Occupation Industry Not on file Not on file Not on file documented as of this encounter Plan of Treatment Upcoming Encounters Date Type Department Care Team (Late st Contact Info) Description 04/22/2025 11:00 AM EDT Office Visit [facility] [address] [place] [address] Aaliyah Toure PA-C [address] [place] [address] Pending Results Name Type Priority Associated Diagnoses Date /Time COMPREHENSIVE METABOLIC PANEL Lab Routine HTN, goal below 140/90 05/16/2024 3:24 PM EDT ALBUMIN / CREATININE RATIO, URINE Lab Routine HTN, goal below 140/90 05/16/2024 3:24 PM EDT Scheduled Procedures Name Priority Associated Diagnoses Date/Ti me COLONOSCOPY FLEXIBLE PROXIMA L DIAGNOSTIC Recall History of colonic polyps Health Maintenance Due Date Last Done Comments Depression Screening 1973 HIV Screening 1976 Albumin/Creatinine Ratio 1979 Cologuard 2006 Fecal Occult Blood Test 2006 Sigmoidoscopy 2006 Hepatitis B Vaccine (3 of 3 - 19+ 3-dose series) 10/17/2019 08/22/2019, 02/12/2005 GFR 05/05/2024 05/05/2023, 08/12, 08/27/2020, Additional history exists Influenza Vaccine (FLU shot) (#1) 2024 06/12/2018, 06/28/2016, 06/13/2015, Additional history exists Diabetes Screening 05/05/2026 05/05/2023, 0 12/13/2011, 04/15/2009 (Done elsewhere) Colonoscopy 11/09/2028 11/09/2023, 10/14, 10/01/2020, Additional history exists Colorectal Cancer Screening 11/09/2028 DTap/Tdap Vaccines (3 - Td or Tdap) 05/04/2032 05/04/2022, 12/21/2010 MENINGOCOCCAL (MENACTRA/MENVEO) Aged Out 04/20/2003 No longer eligible based on patient's age to complete this topic Zoster Vaccines Completed 12/06/2019, 06/07/2019 RETIRED - COLONOSCOPY-EVERY 5 YRS AGES 18-100 Discontinued 11/09/2023, 11/09/2023, 10/01/2020, Additional history exists COVID-19 Vaccine Completed 12/28/2023, 11/2021, 07/21/2021, Additional history exists HPV (Gardasil) Vaccine Aged Out No lo nger eligible based on patient's age to complete this topic Pneumococcal Vaccine: Pediatrics (0 to 5 Years) and At-Risk Patients (6 to 64 Years) Aged Out No longer eligible based on patient's age to complete this topic documented as of this encounter Medical Devices Not on filedocumented as of this encounter Visit Diagnoses Diagnosis HTN, goal below 140/90 Unspecified essential hypertension documented in this encounter Care Teams Valve Inspector Relationship Specialty Start Date End Date Aaliyah Toure PA-C [address] [facility] [place] [address] PCP - General Physician Residential Pest Control Technician 05/04/22 documented as of this encounter
--- NOTE | 2024-11-02 16:50 | Magnetic Resonance Report ---
MRI of the brain performed without IV contrast History: Strokelike symptoms Comparison: April 14, 2024 Technique: Sagittal T1-weighted and axial T2-weighted, T2/FLAIR and diffusion-weighted with ADC map images of the brain were obtained without IV contrast. Findings: No evidence for intracranial mass lesion, mass-effect, midline shift, or abnormal extra-axial fluid collection. The ventricles and sulci are within normal limits for age. Mild high signal intensity foci throughout the white matter consistent with sequelae of chronic small vessel ischemic disease. There is a linear area of diffusion restriction about the right paramedian aspect of the ashlee, measuring 18 x 9 mm in the axial plane. Normal intravascular flow voids. Bilateral coloboma. Impression: Acute infarct in the right ashlee Electronically signed by Eric Lambert 11-02-2024 4:50 PM
--- NOTE | 2024-11-02 18:06 | Neurology Consultation ---
Date of Consultation November 02, 2024 Assessment & Plan (1) Acute ischemic VBA brainstem stroke: Right pontine infarct causing left ataxic hemiparesis with possible stuttering of the colon. Plan Agreed to continue with aspirin and Plavix for now. With atorvastatin 80 mg. Liberate blood pressure, treat if above 180/110 for 24 hours and then work towards normotension. Echocardiogram. The patient will need PT OT and ST.. Telehealth Consultation Telehealth Information Telehealth Information: I performed this visit using a real-time telehealth connection between my location and the patients location ([facility]). After connecting through interactive tele-video, patient was identified by name and date of and/or wristband check.Patient (or authorized healthcare customer counter representative) was informed that this was a telemedicine visit and it was being conducted confidentially over secure lines. My office door was closed and no one else was present in the room with me.Patient (or authorized healthcare customer counter representative) provided consent to proceed with the visit, expressed an understanding of privacy and security of the telemedicine visit, and gave permission to have a hospital customer counter representative in the room in order to assist with the visit and to conduct portions of the visit, as needed. I informed the patient (or authorized healthcare customer counter representative) that I reviewed their record and presented the opportunity for them to ask any questions regarding the visit today. The patient agreed to participate. History of Present Illness Reason for Consultation: Acute ischemic stroke Requesting Physician: Joseph Boogie MD Attending Physician: Joseph Boogie MD History of Present Illness Song Champion is a 64-year-old male patient with a PMH of HTN, DARYN, HLP depression and anxiety . Who presents to the hospital today with left-sided weakness and left facial droop starting early afternoon yesterday with worsening since this morning. The patient reports heaviness of the left upper and lower extremity associated with gait imbalance since yesterday, he thought that his left hand is uncoordina carrie, discomfort worse today so he presented to the emergency room. Prior to going to the MRI the patient reported to the nursing that his hand feels weaker and more coordinated. Earlier today he felt like his face was heavy however is not the case now, he denies any sensory symptoms. His gait has been imbalance he did fall and hurt his left great toe. He denies any other neurological symptoms Allergies Allergy/AdvReac Type Severity Reaction Status Date / Time No Known Allergies Allergy Verified 03/09/20 06:51 Home Medications Medication Instructions Recorded Confirmed Type aspirin 81 mg chewable tablet 81 mg PO DAILY 11/06/18 11/02/24 History atorvastatin 40 mg tablet 40 mg PO QPM 11/06/18 11/02/24 History lisinopril 10 mg tablet 40 mg PO DAILY 11/06/18 11/02/24 History omeprazole 20 mg capsule,delayed 20 mg PO DAILY 11/06/18 11/02/24 History release trazodone 50 mg tablet 150 mg PO HS 11/06/18 11/02/24 History escitalopram oxalate 10 mg tablet 20 mg PO DAILY 03/09/20 11/02/24 History (Lexapro) ketoconazole 2 % shampoo 2 % topical DIRECTED 03/09/20 11/02/24 History Wellbutrin 100 mg PO DAILY 04/14/24 11/02/24 History amlodipine 5 mg tablet 10 mg (2 x 5 mg) PO DAILY #60 tabs 04/17/24 11/02/24 Rx fluticasone propionate 50 1 spray NA DAILY #15 grams 04/17/24 11/02/24 Rx mcg/actuation nasal spray,suspension cholecalciferol (vitamin D3) 25 50 mcg PO HS 11/02/24 11/02/24 History mcg (1,000 unit) capsule Patient History Family History Father Stroke Social History Smoking Status: Never smoker Second Hand Exposure: No; Do You Dip or Chew Tobacco: No; Tobacco Cessation Education Requested by Patient: No Hx Alcohol Use: No Hx Substance Use: No Preferred Language: Yakut Communication Ability: Effective Bus Monitor Required: No Beliefs That Will Affect Care: None marital status: Current Living Situation: Alone current occupational status: employed Other Information That Helps Us Care for You: No Feels Safe at Home: Yes Safety Concerns: Feels Safe At This Time Assistive Devices: None Review of Systems Constitutional: Patient denies weight loss, fever, chills, and night sweats Eyes: Patient denies change in vision, tearing, pain, and redness ENT: Patient denies pain, bleeding, rhinorrhea, and dysphagia Cardiovascular: Patient denies chest pain, palpitation, dyspnea at rest, and dyspnea with exertion Respiratory: Patient denies shortness of breath, cough, wheezing, and productive cough GI: Patient denies reflux, pain, constipation, and diarrhea Skin: Patient denies rash, dryness, and itching Allergies/Immune System: Patient denies rhinorrhea, seasonal allergies, reaction to current MEDS, and joint swelling Endocrine: Patient denies weight loss, weight gain, temperature intolerance, and excessive thirst Neurological: All negative unless mentioned in the HPI Physical Exam General Constitutional: Appearance normally developed Head and face: normocephalic and atraumatic Eyes: no ptosis, no anisocoria, and no dysconjugate gaze Respiratory: normal effort Cardiovascular: regular rhythm and regular rate Abdomen: non distended Skin: no rashes, lesions, or ulcers noted Psychiatric: normal judgement and insight, normal mood, and normal affect NEUROLOGIC EXAMINATION: Mental Status:alert, oriented to time, place, person, normal recent memory, normal remote memory, normal attention span, normal concentration, normal language and normal fund of knowledge Cranial Nerves: CN 2 - no visual defect on confrontation and pupils round, equal, reactive to light CN 3, 4, 6 - extra-ocular movements intact and no nystagmus CN 5 - facial sensation intact CN 7 - mild left facial palsy CN 8 - intact hearing CN 9, 10 - palate symmetric, normal gag CN 11 - good shoulder shrug CN 12 - tongue midline MOTOR: Strength was at least antigravity throughout, left upper and lower pronator drift with pendulus movement SENSATION: intact and symmetric to pinprick, light touch, vibration and joint position GAIT: stable, no ataxia and can perform tandem walking COORDINATION: +ve fingert to nose and heel knee scott REFLEXES: cannot assess over telemedicine NIH Stroke Scale: 1a. Level of Consciousness: alert = 0 1b. LOC Questions: (month, age): both correct = 0 1c. LOC Commands (open and close eyes, make fist and let go using non-paretic hand): obeys both correctly = 0 2. Best Gaze (eyes open and patient follows examiner's finger or face): normal = 0 3. Visual (visual threat or finger counting in each quadrant): no loss = 0 4. Facial Palsy (show teeth, raise eye brows and squeeze eyes shut, or grimace symmetry in a comatose patient):mild left facial droop = 1 5a. Motor Arm (extend arm (palms down) to 90 degrees and score drift/movement (10 seconds) - Left: mild drift = 1 5b. Motor Arm: (extend arm (palms down) to 90 degrees and score drift/movement (10 seconds) - Right: no drift = 0 6a. Motor Leg (elevate leg 30 degrees and score drift/ movement (5 seconds) - Left:mild drift = 1 6b. Motor Leg (elevate leg 30 degrees and score drift/ movement (5 seconds) - Right: no drift = 0 7. Limb Ataxia (finger to nose, heel down scott): positive in 2 limbs = 2 8. Sensory (pin prick to face, arm, trunk and leg, compare side to side): normal = 0 9. Best Language: no aphasia = 0 10. Dysarthria (evaluate speech clarity by patient repeating listed words): normal articulation = 0 11. Extinction and Inattention: no neglect = 0 Total: 5 Results & Data Vital Signs (Past 12 Hours) Vital Signs Temp Pulse Pulse Resp BP BP Pulse Ox 11/02/24 14:58 36.7 C 58 L 16 170/92 H 94 11/02/24 13:33 58 L 19 98 11/02/24 13:09 61 17 152/99 H 97 11/02/24 12:57 58 L 15 97 11/02/24 12:45 57 L 16 97 11/02/24 12:30 134/93 11/02/24 12:19 141/83 H 11/02/24 12:12 62 17 98 11/02/24 12:09 62 22 98 11/02/24 12:05 164/80 H 11/02/24 12:05 63 11/02/24 12:02 36.9 C 63 18 98 O2 Del Method 11/02/24 14:58 Room Air 11/02/24 13:33 11/02/24 13:09 11/02/24 12:57 11/02/24 12:45 11/02/24 12:30 11/02/24 12:19 11/02/24 12:12 11/02/24 12:09 11/02/24 12:05 11/02/24 12:05 11/02/24 12:02 Room Air Laboratory Results Laboratory Results - last 24 hr 11/02/24 11/02/24 12:04 12:06 WBC 7.84 RBC 4.86 Hgb 13.7 L Hct 40.7 L MCV 83.7 MCH 28.2 MCHC 33.7 RDW Std Deviation 40.1 RDW Coeff of Tripp 13.2 Plt Count 208 MPV 11.5 Immature Gran % (Auto) 0.3 Neut % (Auto) 79.0 Lymph % (Auto) 10.8 [place] % (Auto) 8.9 Eos % (Auto) 0.5 Baso % (Auto) 0.5 Neut # (Auto) 6.19 Lymph # (Auto) 0.[address] # (Auto) 0.70 H Eos # (Auto) 0.04 Baso # (Auto) 0.04 Immature Gran # (Auto) 0.02 PT 11.3 INR 1.0 APTT 26 PTT Ratio 1.0 Sodium 141 Potassium 3.8 Chloride 106 Carbon Dioxide 27 Anion Gap 8 BUN 18 Creatinine 0.92 Est Cr Clr Drug Dosing 113.9 eGFR 93.47 BUN/Creatinine Ratio 19.6 Glucose 104 H POC Glucose 109 H Calcium 9.1 Magnesium 1.8 Total Bilirubin 0.7 AST 16 ALT 18 Alkaline Phosphatase 88 Troponin I High Sens 5.8 Total Protein 6.4 Albumin 4.1 Globulin 2.3 L Albumin/Globulin Ratio 1.8 Blood Type A Positive Antibody Screen NEGATIVE Diagnostic Findings Chest X-Ray 11/02/24 11:43 XR chest 1V portable CLINICAL HISTORY: neuro deficit, acute stroke suspected COMPARISON STUDY: 04/15/2009 FINDINGS: Single view portable chest is unchanged demonstrating no acute cardiopulmonary process. Mild cardiomegaly and pulmonary vascular congestion are present. There is no focal airspace consolidation or pleural effusion. There is no pneumothorax. IMPRESSION: Stable exam; no acute process ACT 112: Negative or not required by law. Electronically signed by: Karen Hernandez M.D. 11/02/2024 1:[address] 11/02/24 11:43 CT OF THE HEAD WITHOUT CONTRAST CLINICAL HISTORY: neuro deficit, acute stroke suspected COMPARISON STUDY: Head CT April 15, 2024. TECHNIQUE: Helical axial images of the head were obtained without IV contrast. Automated exposure control was utilized for the study. A dose lowering technique was utilized adhering to the principles of ALARA. FINDINGS: No acute intracranial hemorrhage, midline shift or mass effect is present. The ventricular system is unremarkable. The basal cisterns are patent. No extra-axial collections are present. There are no findings to suggest acute dural sinus thrombosis or acute territorial infarct. No significant calvarial abnormalities are present. Visualized portions of the sinuses and mastoid air cells are clear. IMPRESSION: No acute intracranial findings. ACT 112: Negative or not required by law. Electronically signed by: Trevor Christiansen M.D. 11/02/2024 12:16 PM Head CTA 11/02/24 11:43 CTA ANGIOGRAPHY OF THE HEAD CLINICAL HISTORY: neuro deficit, acute stroke suspected COMPARISON STUDY: CTA of the head April 14, 2024. TECHNIQUE: Helical axial images of the head were obtained following uneventful intravenous administration of 112 cc of Optiray. Sagittal and coronal reconstructions were viewed as well as maximal intensity projections on an independent 3-D workstation. Automated exposure control was utilized for the study. A dose lowering technique was utilized adhering to the principles of ALARA. FINDINGS: The bilateral M1, M2, A1 and A2 segments are patent. No vessel cut off is identified within the anterior posterior circulation. There is mild plaque within the bilateral cavernous carotids without stenosis. The right vertebral artery is dominant. As before, the basilar artery is diminutive. This is largely due to persistence of the bilateral posterior cerebral arteries. The posterior cerebral arteries are patent. Jugular system is normal. Basal cisterns are patent. There are no extra axial collections. IMPRESSION: No large vessel occlusion. No intracranial aneurysm. ACT 112: Negative or not required by law. Electronically signed by: Trevor Christiansen M.D. 11/02/2024 12:25 PM Neck CTA 11/02/24 11:43 CT angio neck with con CLINICAL HISTORY: neuro deficit, acute stroke suspected. COMPARISON STUDY: 04/14/2024 and unchanged since the prior examination. TECHNIQUE: Following the IV administration of 112 of Optiray, CT angiogram of the neck was performed from the aortic arch to the skull base. Images are reviewed in the axial, sagittal, and coronal planes. 3-D MIPS images are created and assessed. IV contrast was administered without complication. All measurements were calculated based on NASCET criteria. A dose lowering technique was utilized adhering to the principles of ALARA. CT DOSE: 1995.15 mGy.cm FINDINGS: There is no evidence of occlusive disease are hemodynamically significant stenosis. Calcified plaques within the proximal ICAs are noted bilaterally with no greater than 20% stenosis. The ECAs are patent. Posterior circulation demonstrates right vertebral artery dominance. The posterior circulation including the lower basilar artery is somewhat diminutive IMPRESSION: No change since the prior examination. No evidence of hemodynamically significant stenosis or occlusion. ACT 112: Negative or not required by law. The above report was generated using voice recognition software. It may contain grammatical, syntax or spelling errors. Electronically signed by: Karen Hernandez M.D. 11/02/2024 12:[address] 11/02/24 11:53 CT cervical spine wo con CT DOSE: 1995.15 CLINICAL HISTORY: Ground-level fall; suspected stroke COMPARISON: None TECHNIQUE: Multiple axial CT images of the cervical spine were obtained without contrast. Sagittal and coronal reconstructions were done. A dose lowering technique was utilized adhering to the principles of ALARA. FINDINGS: There is no acute traumatic cervical spine injury identified. There is no fracture or traumatic malalignment. The prevertebral soft tissues are not swollen. The odontoid and atlantoaxial articulation are intact. 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 IMPRESSION: No acute traumatic cervical spine injury. ACT 112: Negative or not required by law. The above report was generated using voice recognition software. It may contain grammatical, syntax or spelling errors. Electronically signed by: Karen Hernandez M.D. 11/02/2024 12:17 PM Brain MRI 11/02/24 14:25 MRI of the brain performed without IV contrast History: Strokelike symptoms Comparison: April 14, 2024 Technique: Sagittal T1-weighted and axial T2-weighted, T2/FLAIR and diffusion-weighted with ADC map images of the brain were obtained without IV contrast. Findings: No evidence for intracranial mass lesion, mass-effect, midline shift, or abnormal extra-axial fluid collection. The ventricles and sulci are within normal limits for age. Mild high signal intensity foci throughout the white matter consistent with sequelae of chronic small vessel ischemic disease. There is a linear area of diffusion restriction about the right paramedian aspect of the ashlee, measuring 18 x 9 mm in the axial plane. Normal intravascular flow voids. Bilateral coloboma. Impression: Acute infarct in the right ashlee Electronically signed by Eric Lambert 11-02-2024 4:50 PM Medications Administered Home Medications Medication Instructions Recorded Confirmed Last Taken aspirin 81 mg chewable tablet 81 mg PO DAILY 11/06/18 11/02/24 11/02/24 atorvastatin 40 mg tablet 40 mg PO QPM 11/06/18 11/02/24 11/02/24 lisinopril 10 mg tablet 40 mg PO DAILY 11/06/18 11/02/24 11/02/24 omeprazole 20 mg capsule,delayed 20 mg PO DAILY 11/06/18 11/02/24 11/02/24 release trazodone 50 mg tablet 150 mg PO HS 11/06/18 11/02/24 11/01/24 escitalopram oxalate 10 mg tablet 20 mg PO DAILY 03/09/20 11/02/24 11/01/24 (Lexapro) ketoconazole 2 % shampoo 2 % topical DIRECTED 03/09/20 11/02/24 Unknown Wellbutrin 100 mg PO DAILY 04/14/24 11/02/24 11/02/24 amlodipine 5 mg tablet 10 mg (2 x 5 mg) PO DAILY #60 tabs 04/17/24 11/02/24 11/02/24 fluticasone propionate 50 1 spray NA DAILY #15 grams 04/17/24 11/02/24 Unknown mcg/actuation nasal spray,suspension cholecalciferol (vitamin D3) 25 50 mcg PO HS 11/02/24 11/02/24 11/01/24 mcg (1,000 unit) capsule Active Medications Generic Name Dose Route Start Last Admin Trade Name Freq PRN Reason Stop Dose Admin Ceftriaxone Sodium 2,000 mg in 50 mls @ 100 mls/hr 11/02/24 15:15 11/02/24 17:16 Rocephin IV 11/09/24 15:14 Infused Q24H [facility]
[2024-11-02] MEDS: CHOLECALCIFEROL 25 MCG (1000 UNITS) TAB PO SCH (19:53)
[2024-11-02] MEDS: traZODone HCL 50 MG TAB PO SCH (22:53)
[2024-11-03 06:19] LABS: Hematocrit (blood only) 42.7 % (42.0-52.0); Hemoglobin 14.3 g/dl (14.0-18.0); Mean Corpuscular Hgb Conc 33.5 g/dL (32.0-36.0); Mean Corpuscular Volume 83.7 fL (80.0-100.0); Mean Platelet Volume 11.4 fL (9.4-12.4); Platelet Count 217 K/uL (130-400); RDW Coefficient of Variation 13.4 % (11.5-14.5); RDW Standard Deviation 41.1 fL (36.4-46.3); White Blood Count 8.71 K/ul (4.8-10.8)
[2024-11-03 06:31] LABS: BUN Creatinine Ratio 16.8 (10-20); Calcium 9.3 mg/dl (8.6-10.3); Creatinine Clr Calc Pharmacy 110.1 ml/min; Potassium 4.5 mmol/L (3.5-5.1)
[2024-11-03] MEDS ORDERED: lisinopril 40 MG TAB PO SCH (09:00)
[2024-11-03] MEDS ORDERED: ASPIRIN 81 MG CHEW PO SCH (09:00)
[2024-11-03] MEDS ORDERED: amLODIPine BESYLATE 5 MG TAB PO SCH (09:00)
[2024-11-03 09:10] LABS: Estimated Average Glucose 114 mg/dl; Hemoglobin A1C 5.6 % (4.5-5.6)
[2024-11-03] MEDS: CLOPIDOGREL BISULFATE 75 MG TAB PO SCH (10:11)
[2024-11-03] MEDS: ASPIRIN 81 MG ECTAB PO SCH (10:11)
[2024-11-03] MEDS: ESCITALOPRAM OXALATE 20 MG TAB PO SCH (10:12)
[2024-11-03] MEDS: ACETAMINOPHEN 325 MG TAB PO PRN (10:12)
[2024-11-03] MEDS: FLUTICASONE PROPIONATE NA SPR 16 GM BTL SCH (10:15)
[2024-11-03] MEDS: PANTOprazole 40 MG TAB PO SCH (10:15)
[2024-11-03] MEDS: ATORVASTATIN 40 MG TAB PO SCH (10:16)
[2024-11-03] MEDS: buPROPion HCl 100 MG TABLET PO SCH (10:16)
[2024-11-03] MEDS: BACLOFEN 10 MG TAB PO ONE (10:58)
[2024-11-03] MEDS ORDERED: BACLOFEN 10 MG TAB PO SCH ×2 (15:45→21:00)
[2024-11-03] MEDS: tiZANidine HCL 4 MG TABLET PO PRN (15:54)
--- NOTE | 2024-11-03 16:09 | Hospitalist Progress Note ---
Date of Service November 03, 2024 Assessment & Plan (1) Stroke-like symptoms: (2) HTN (hypertension): (3) HLD (hyperlipidemia): (4) Gout: (5) GERD (gastroesophageal reflux disease): Plan Acute CVA:Right ashlee acute Left sided Upper and lower extremity weakness Facial Droop Ataxia - Admit to PCU for observation - Stroke order set completed, no indication for thrombolytic as sx started about 24 hours ago at this time - CT head reviewed and is negative - MRI brain wo contrast ordered - Tele-neurology contacted by the ER- Recs aspirin and plavix, given first dose in the ER, continue asa 81 daily, plavix 75 mg and atorvastatin 80 mg - Will allow permissive hypertension with SBP 140-170 - Echo reviewed personally in outpatient epic chart, stress echo from 2011, LVEF of 60 to 64%, no PFO or ASD noted. - Neurology consulted - PT/OT and speech therapy consults placed 11/03 For having worsening of left upper extremity and lower extremity weakness today Discussed with neurologist Dr. Man Cedeno-expected course of his symptoms given size of right ashlee infarct Repeat imaging not recommended at this point as per neurology Continue aspirin and Plavix Tizanidine as needed for spasms Continue to monitor closely HTN - BP systolic 160s permissive hypertension today - hold amlodipine and lisinopril for now HLD - Will check lipid panel with am labs - Check A1C: 5.6 Toe wound - as pt injured himself this AM in bathroom - start ppx abx, wound care inpt Foot x-ray ordered change antibiotic to Cephalexin qid DVT ppx: teds, scds Lines: PIV x 2 FEN/GI: NPO until passes bedside swallow CODE: Conditional code -- no intubation. Dispo: pending PT/OT eval Admission and Anticipated Discharge Date Admission Date: November 02, 2024 Subjective Follow-up for acute CVA, etc. Notified by RN that patient is having worsening left-sided weakness and dysarthr ia Seen at the bedside immediately Patient is awake and alert, conversant, confirms he is having worsening of left- sided weakness more in the upper extremity, also having some spasms on lower extremity States his speech is at baseline Denies headache, nausea or vomiting, dizziness No other new symptom Review of Systems Review of Systems: all noted and negative except for above Physical Exam Physical Exam: General- oriented x 3, not in distress, speaks in sentences with no effort or accessory muscle use Eyes- anicteric Neck- no JVD Lungs- clear breath sounds bilaterally, no rales/wheezes Heart- normal rate, regular rhythm; no murmurs Abdomen- normal bowel sounds, nondistended, soft, nontender Extremities- no pretibial edema, no calf tenderness Neuro- alert, oriented x 3; Left upper extremity motor strength: 2-3/5 Left lower extremity motor strength: 3 out of 5 Otherwise 5/5 on other extremities Sensation 100% Skin- warm & dry Results & Data Results & Data Vital Signs (Past 12 Hours) Vital Signs Temp Pulse Pulse Resp BP Pulse Ox O2 Del Method 11/03/24 12:41 Room Air 11/03/24 11:16 37.1 C 66 18 130/76 95 Room Air 11/03/24 07:27 36.9 C 56 L 18 154/76 H 97 Room Air 11/03/24 05:47 56 L all noted and reviewed including below
--- NOTE | 2024-11-03 16:21 | XRay Report ---
INDICATION: Foot pain. TECHNIQUE: 3 views of the left foot. COMPARISON: Radiograph from 06/24/2018. FINDINGS: No acute fracture or dislocation. No lytic or blastic bony lesions seen. No evidence of cortical erosion. Mild to moderate first metatarsophalangeal joint space loss. Small spur at the Achilles insertion on the calcaneus. Soft tissue swelling most pronounced in the first digit. IMPRESSION: Soft tissue swelling without acute osseous abnormality evident. Electronically signed by Sundar Mesa 11-03-2024 4:21 PM
[2024-11-03] MEDS: cephALEXin 500 MG CAP PO SCH (16:24)
[2024-11-03] MEDS: oxyCODONE HCL IR 5 MG TAB (IMMEDIATE RELEASE) PO STA (19:31)
[2024-11-04] MEDS: oxyCODONE HCL IR 5 MG TAB (IMMEDIATE RELEASE) PO PRN ×2 (08:40→18:12)
[2024-11-04] MEDS: lisinopril 40 MG TAB PO SCH (09:41)
[2024-11-04] MEDS: predniSONE 20 MG TAB PO SCH (11:31)
--- NOTE | 2024-11-04 14:40 | Hospitalist Progress Note ---
Date of Service November 04, 2024 Assessment & Plan (1) Stroke-like symptoms: (2) HTN (hypertension): (3) HLD (hyperlipidemia): (4) Gout: (5) GERD (gastroesophageal reflux disease): Plan Acute CVA:Right ashlee acute Left sided Upper and lower extremity weakness Facial Droop Ataxia - Admit to PCU for observation - Stroke order set completed, no indication for thrombolytic as sx started about 24 hours ago at this time - CT head reviewed and is negative - MRI brain wo contrast ordered - Tele-neurology contacted by the ER- Recs aspirin and plavix, given first dose in the ER, continue asa 81 daily, plavix 75 mg and atorvastatin 80 mg - Will allow permissive hypertension with SBP 140-170 - Echo reviewed personally in outpatient epic chart, stress echo from 2011, LVEF of 60 to 64%, no PFO or ASD noted. - Neurology consulted - PT/OT and speech therapy consults placed 11/03 For having worsening of left upper extremity and lower extremity weakness today Discussed with neurologist Dr. Man Cedeno-expected course of his symptoms given size of right ashlee infarct Repeat imaging not recommended at this point as per neurology Continue aspirin and Plavix Tizanidine as needed for spasms Continue to monitor closely 11/04 L sided weakness about the same as yesterday has some L facial droop today- requested Speech Tx re-eval continue ASA, Plavix HTN - BP systolic 160s permissive hypertension today - hold amlodipine and lisinopril for now 11/04 resume Lisinopril monitor BP HLD - Will check lipid panel with am labs - Check A1C: 5.6 Toe wound - as pt injured himself this AM in bathroom - start ppx abx, wound care inpt Foot x-ray ordered change antibiotic to Cephalexin qid 11/04 no fracture on foot XR (+) gout flare- Prednisone 20mg po daily, Avoiding colchicine in light of re ceiving aspirin plus Plavix Continue cephalexin p.o. 4 times daily for possible great toe infection DVT ppx: teds, scds Lines: PIV x 2 FEN/GI: speech re eval today CODE: Conditional code -- no intubation. Dispo: pending PT/OT eval- will need Acute Rehab Admission and Anticipated Discharge Date Admission Date: November 02, 2024 Subjective Follow-up for acute CVA, etc. Seen sitting up in bedside chair, comfortable, not in distress Feels little bit better overall today Still having significant left-sided weakness Reports having mild dysphagia today also reports increased left great toe pain reminiscent of his gout attack Review of Systems Review of Systems: all noted and negative except for above Physical Exam Physical Exam: General- oriented x 3, not in distress, speaks in sentences with no effort or accessory muscle use Eyes- anicteric Neck- no JVD Lungs- clear breath sounds bilaterally, no rales/wheezes Heart- normal rate, regular rhythm; no murmurs Abdomen- normal bowel sounds, nondistended, soft, nontender Extremities- no pretibial edema, no calf tenderness Left foot: moderate edema, mild erythema base of L foot great toe dressing over L foot great toe wound in place Neuro- alert, oriented x 3; no new gross focal neurologic deficits LUE and LLE strength 2/5, 2-3/5 Skin- warm & dry Results & Data Results & Data Vital Signs (Past 12 Hours) Vital Signs Temp Pulse Resp BP Pulse Ox O2 Del Method 11/04/24 11:04 36.7 C 58 L 18 105/64 93 Room Air 11/04/24 07:34 36.6 C 59 L 18 193/79 H 95 Room Air 11/04/24 03:26 37 C 55 L 16 136/78 98 Room Air all noted and reviewed including below
--- NOTE | 2024-11-05 12:07 | Pharmacy Report ---
- Date of Service November 05, 2024 - Pharmacy CVA/TIA Medication Review Medications to Prevent Stroke handout has been added to the patients discharge packet. Antiplatelet(s) * aspirin 81 mg PO daily + clopidogrel 75 mg PO daily * Discussed with Dr. Toth - outpatient omeprazole to be changed to pant oprazole ongoing Cholesterol * High intensity statin: atorvastatin 80 mg daily DVT Prophylaxis * Discussed with Dr. Toth - SCDs to be ordered Therapeutic Anticoagulation * No history of Afib/Aflutter noted Type 2 Diabetes * Patient does not have T2DM
[2024-11-05] MEDS: LACTULOSE SYRUP 20 GM/30 ML UDC PO ONE (13:40)
--- NOTE | 2024-11-05 17:53 | Hospitalist Progress Note ---
Date of Service November 05, 2024 Assessment & Plan (1) Stroke-like symptoms: (2) HTN (hypertension): (3) HLD (hyperlipidemia): (4) Gout: (5) GERD (gastroesophageal reflux disease): Plan Acute CVA:Right ashlee acute Left sided Upper and lower extremity weakness Facial Droop Ataxia - Admit to PCU for observation - Stroke order set completed, no indication for thrombolytic as sx started about 24 hours ago at this time - CT head reviewed and is negative - MRI brain wo contrast ordered - Tele-neurology contacted by the ER- Recs aspirin and plavix, given first dose in the ER, continue asa 81 daily, plavix 75 mg and atorvastatin 80 mg - Will allow permissive hypertension with SBP 140-170 - Echo reviewed personally in outpatient epic chart, stress echo from 2011, LVEF of 60 to 64%, no PFO or ASD noted. - Neurology consulted - PT/OT and speech therapy consults placed 11/03 For having worsening of left upper extremity and lower extremity weakness today Discussed with neurologist Dr. Man Cedeno-expected course of his symptoms given size of right ashlee infarct Repeat imaging not recommended at this point as per neurology Continue aspirin and Plavix Tizanidine as needed for spasms Continue to monitor closely 11/04 L sided weakness about the same as yesterday has some L facial droop today- requested Speech Tx re-eval continue ASA, Plavix 11/05 Left lower extremity seems to be improving Continue aspirin Plavix Blood pressure not at goal Resume usual amlodipine Anticipate transition to acute rehab tomorrow HTN - BP systolic 160s permissive hypertension today - hold amlodipine and lisinopril for now 11/04 resume Lisinopril monitor BP 11/05 resume Amlodipine HLD - lipid panel with am labs Triglyceride 123 Cholesterol 144 LDL 90 ALT 25, HDL 29 - A1C: 5.6 Toe wound - as pt injured himself this AM in bathroom - start ppx abx, wound care inpt Foot x-ray ordered change antibiotic to Cephalexin qid 11/04 no fracture on foot XR (+) gout flare- Prednisone 20mg po daily, Avoiding colchicine in light of receiving aspirin plus Plavix Continue cephalexin p.o. 4 times daily for possible great toe infection 11/05 Gout flare improving, continue prednisone complete 5 days Continue cephalexin QID DVT ppx: teds, scds Lines: PIV x 2 FEN/GI: speech re eval - finger food CODE: Conditional code -- no intubation. Dispo:Transition to acute rehab when accepted PT/OT eval- will need Acute Rehab Admission and Anticipated Discharge Date Admission Date: November 02, 2024 Subjective Follow-up for acute CVA, etc. Seen resting in bed, comfortable, not in distress States he feels better today Left lower extremity seems to be a little bit stronger today Foot pain improving, no fevers or chills No other new symptom Review of Systems Review of Systems: all noted and negative except for above Physical Exam Physical Exam: General- oriented x 3, not in distress, speaks in sentences with no effort or accessory muscle use Eyes- anicteric Neck- no JVD Lungs- clear breath sounds bilaterally, no rales/wheezes Heart- normal rate, regular rhythm; no murmurs Abdomen- normal bowel sounds, nondistended, soft, nontender Extremities- no pretibial edema, no calf tenderness Neuro- alert, oriented x 3; Left lower extremity motor strength improving Left upper extremity about the same No other new focal neurologic deficits Skin- warm & dry Results & Data Results & Data Vital Signs (Past 12 Hours) Vital Signs Temp Pulse Pulse Resp BP Pulse Ox O2 Del Method 11/05/24 15:34 36.4 C L 63 18 155/79 H 96 Room Air 11/05/24 14:22 63 11/05/24 11:50 36.2 C L 65 18 152/78 H 94 Room Air 11/05/24 07:35 49 L 11/05/24 07:30 36.8 C 54 L 19 168/103 H 96 Room Air all noted and reviewed including below
[2024-11-05] MEDS: amLODIPine BESYLATE 5 MG TAB PO ONE (18:11)
[2024-11-05] MEDS: MAGNESIUM HYDROXIDE SUSP 30 ML UDC PO PRN (21:29)
[2024-11-06 07:00] VITALS: RESP 18
[2024-11-06] MEDS: amLODIPine BESYLATE 5 MG TAB PO SCH (07:44)
[2024-11-06] MEDS: POLYETHYLENE (MIRALAX) 17 GM PACK PO SCH (07:50)
[2024-11-06] MEDS: POLYETHYLENE (MIRALAX) 17 GM PACK ONE (07:54)
[2024-11-06 10:38] VITALS: TEMP 99.5; O2SAT 95
[2024-11-06] MEDS ORDERED: STROKE PATIENT DISCHARGE STA (14:02)
[2024-11-06 14:11] VITALS: BP 134/76; PULSE 62
--- NOTE | 2024-11-06 14:12 | Discharge Summary ---
Discharge Summary Date of Service November 06, 2024 Principal Dx & Hospital Course #1 = Principal Diagnosis (1) Stroke-like symptoms: (2) HTN (hypertension): (3) HLD (hyperlipidemia): (4) Gout: (5) GERD (gastroesophageal reflux disease): Plan Acute CVA:Right ashlee acute Left sided Upper and lower extremity weakness Facial Droop Ataxia - Stroke order set completed, no indication for thrombolytic as sx started about 24 hours ago at this time - CT head reviewed and is negative - CTA head and neck: There is mild plaque within the bilateral cavernous carotids without stenosis. Calcified plaques within the proximal ICAs are noted bilaterally with no greater than 20% stenosis. - Brain MRI: There is a linear area of diffusion restriction about the right paramedian aspect of the ashlee, measuring 18 x 9 mm in the axial plane. - Echo reviewed personally in outpatient epic chart, stress echo from 2011, LVEF of 60 to 64%, no PFO or ASD noted. - Tele-neurology contacted by the ER- Recs aspirin and plavix, given first dose in the ER, continue asa 81 daily, plavix 75 mg and atorvastatin 80 mg - Will allow permissive hypertension with SBP 140-170 - Neurology consulted - PT/OT and speech therapy consults placed 11/03 having worsening of left upper extremity and lower extremity weakness today Discussed with neurologist Dr. Man Cedeno-expected course of his symptoms given size of right ashlee infarct Repeat imaging not recommended at this point as per neurology Continue aspirin and Plavix Tizanidine as needed for spasms Continue to monitor closely 11/04 L sided weakness about the same as yesterday has some L facial droop today- requested Speech Tx re-eval continue ASA, Plavix 11/05 Left lower extremity seems to be improving Continue aspirin Plavix Blood pressure not at goal Resume usual amlodipine Anticipate transition to acute rehab tomorrow 11/06 Still having significant left upper extremity weakness although can move fingers better, left lower extremity seems to be improving gradually daily Tele: no a fib updated Echo: pending Discharge plan: Aspirin and Plavix x 17 more days to complete 3-week course, then aspirin only Simvastatin increased to 80 mg p.o. daily Resume usual lisinopril and amlodipine, monitor blood pressure closely Oxycodone for leg spasms, muscle relaxants did not provide relief Continue PT and OT evaluation Continue to monitor A1c, lipid panel [facility] resume usual Lisinopril and Amlodipine HLD - lipid panel with am labs Triglyceride 123 Cholesterol 144 LDL 90 ALT 25, HDL 29 - A1C: 5.6 - Simvastatin incresed to 80mg po daily Toe wound, L Great toe Gout Flare, L Great toe - as pt injured himself this AM in bathroom - start ppx abx, wound care inpt Foot x-ray ordered changed antibiotic to Cephalexin qid 11/04 no fracture on foot XR (+) gout flare- Prednisone 20mg po daily, Avoiding colchicine in light of receiving aspirin plus Plavix Continue cephalexin p.o. 4 times daily for possible great toe infection 11/05 Gout flare improving, continue prednisone complete 5 days Continue cephalexin QID 11/06 continues to improve Prednisone 20 mg x 2 more days Cephalexin 4 times daily x 3 more days DVT ppx: Lovenox SC Lines: PIV x 2 FEN/GI: speech re eval - finger food CODE: Conditional code -- no intubation. Dispo:Transition to acute rehab PT/OT eval- Acute Rehab Notes For Next Care Provider Medication Changes From Visit per Med Rec Admission HPI Per Admitting Provider This is a 64-year-old male with PMHx of HTN, HLD, sleep apnea, GERD, retinal detachment and hx of vestibular neuritis in April 2024, gout, who presents to the hospital with acute onset of strokelike symptoms which began yesterday. He thought initially his symptoms were like the previous bout of vestibular neuritis and thought this would get better. He was in rehab for such back then. Patient admits noticing being off balance early afternoon around 1 -2 pm yesterday. This morning around 8 am he felt his left hand was "heavy" and had difficulty dialing numbers on his phone. He has a little bit of a lisp at baseline with speech but pt states that this is his normal speech and there are no acute changes. This morning he fell this morning in his house when in the bathroom and fell on the ground twice, hit his left great toe and was bleeding which is now bandages. He denies hitting his head. He lives at home alone. Pt then called 911. Pt denies smoking or tobacco use. Occasional liquor drink 1x per month. 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 Pt has left sided facial droop, left-sided upper and lower extremity weakness, ataxia. And presented to the hospital here this morning. He thinks symptoms are slowly improving since being here. Pt reports that he did take his morning medications today which includes asa 81 mg and atorvastatin [address] imaging of the head and neck are negative. He was dosed with aspirin full dose and loaded with plavix 300 mg in the ER today. Admission Exam Per Admitting Provider General: awake, alert, no apparent distress, obese white male Head: Normocephalic, atraumatic ENT: PERRL, EOMI, no pharyngeal exudate, mucous membranes moist Chest: Clear to auscultation, on room air, no adventitious breath sounds Cardiac: Regular rate and rhythm, + TRACY, no JVD, normal peripheral pulses, good capillary refill Abdominal: NABS x 4 quadrants, soft, nondistended, nontender to palpation, no rebound or guarding Extremities: Normal inspection, no peripheral edema or erythema, calfs nontender to palpation Psych: Normal mood and affect Neuro: speech with lispe is baseline, AAO x 3, strength intact, left hand rated 4/5 with squeeze compared toright, left leg strength rated 4/5 compared to the right, left sided facial droop with mouth slightly present. + pronator drift with the left arm. CN II-XII are intact. Can perform rapid alternating movements but is slightly slower with the left hand. Can follow finger with eyes, no nystagmus. Reports chronically blurred vision s/p retinal detachment surgeries in the left eye at baseline, no peripheral sensory deficits Discharge Exam General- oriented x 3, not in distress, speaks in sentences with no effort or ac cessory muscle use Eyes- anicteric Neck- no JVD Lungs- clear breath sounds bilaterally, no rales/wheezes Heart- normal rate, regular rhythm; no murmurs Abdomen- normal bowel sounds, nondistended, soft, nontender Extremities- R great toe: mild erythema, mild edema MTP joint, small wound on the proximal phalanx- dry, healing well Neuro- alert, oriented x 3; mild L facial droop, LUE motor strength 1-2/5, LLE 2/5 no gross focal neurologic deficits Skin- warm & dry Updated Medication List Medication Instructions Recorded Confirmed Type aspirin 81 mg chewable tablet 81 mg PO DAILY 11/06/18 11/02/24 History lisinopril 10 mg tablet 40 mg PO DAILY 11/06/18 11/02/24 History trazodone 50 mg tablet 150 mg PO HS 11/06/18 11/02/24 History escitalopram oxalate 10 mg tablet 20 mg PO DAILY 03/09/20 11/02/24 History (Lexapro) ketoconazole 2 % shampoo 2 % topical DIRECTED 03/09/20 11/02/24 History Wellbutrin 100 mg PO DAILY 04/14/24 11/02/24 History amlodipine 5 mg tablet 10 mg (2 x 5 mg) PO DAILY #60 tabs 04/17/24 11/02/24 Rx fluticasone propionate 50 1 spray NA DAILY #15 grams 04/17/24 11/02/24 Rx mcg/actuation nasal spray,suspension cholecalciferol (vitamin D3) 25 50 mcg PO HS 11/02/24 11/02/24 History mcg (1,000 unit) capsule atorvastatin 40 mg tablet 80 mg (2 x 40 mg) PO QAM 30 days 11/06/24 Rx #60 tabs cephalexin 500 mg capsule 500 mg PO QID 3 days #12 caps 11/06/24 Rx clopidogrel 75 mg tablet 75 mg PO QAM 17 days #17 tabs 11/06/24 Rx enoxaparin 40 mg/0.4 mL 40 mg (0.4 mL) subcut DAILY 30 11/06/24 Rx subcutaneous syringe (Lovenox) days #12 mL oxycodone 5 mg tablet 5 mg PO Q4H PRN SEVERE PAIN #15 11/06/24 Rx tabs pantoprazole 40 mg tablet,delayed 40 mg PO DAILY 30 days #30 tabs 11/06/24 Rx release polyethylene glycol 3350 17 gram 17 g PO DAILY 30 days #30 ea 11/06/24 Rx oral powder packet (Miralax) prednisone 20 mg tablet 20 mg PO QAM 2 days #2 tabs 11/06/24 Rx Hospital Stay Data Consultations 11/02/24 12:27 ED Decision to Admit Stat 11/02/24 14:25 Consult Neurology Routine Diagnostic Imagining Performed Laboratory Results WBC 8.71 K/ul (4.8-10.8) 11/03/24 05:09 RBC 5.10 M/uL (4.70-6.10) 11/03/24 05:09 Hgb 14.3 g/dl (14.0-18.0) 11/03/24 05:09 Hct 42.7 % (42.0-52.0) 11/03/24 05:09 MCV 83.7 fL (80.0-100.0) 11/03/24 05:09 MCH 28.0 pg (25.0-34.0) 11/03/24 05:09 MCHC 33.5 g/dL (32.0-36.0) 11/03/24 05:09 RDW Std Deviation 41.1 fL (36.4-46.3) 11/03/24 05:09 RDW Coeff of Tripp 13.4 % (11.5-14.5) 11/03/24 05:09 Plt Count 217 K/uL (130-400) 11/03/24 05:09 MPV 11.4 fL (9.4-12.4) 11/03/24 05:09 Immature Gran % (Auto) 0.3 % 11/02/24 12:04 Neut % (Auto) 79.0 % 11/02/24 12:04 Lymph % (Auto) 10.8 % 11/02/24 12:04 [place] % (Auto) 8.9 % 11/02/24 12:04 Eos % (Auto) 0.5 % 11/02/24 12:04 Baso % (Auto) 0.5 % 11/02/24 12:04 Neut # (Auto) 6.19 K/uL (1.40-6.50) 11/02/24 12:04 Lymph # (Auto) 0.85 K/uL (1.20-3.40) L 11/02/24 12:04 [place] # (Auto) 0.70 K/uL (0.11-0.59) H 11/02/24 12:04 Eos # (Auto) 0.04 K/uL (0.00-0.50) 11/02/24 12:04 Baso # (Auto) 0.04 K/uL (0.00-0.20) 11/02/24 12:04 Immature Gran # (Auto) 0.02 K/uL (0.01-0.20) 11/02/24 12:04 PT 11.3 Seconds (9.0-12.0) 11/02/24 12:04 INR 1.0 (0.9-1.1) 11/02/24 12:04 APTT 26 Seconds (21-31) 11/02/24 12:04 PTT Ratio 1.0 11/02/24 12:04 Sodium 142 mmol/L (136-145) 11/03/24 05:09 Potassium 4.5 mmol/L (3.5-5.1) 11/03/24 05:09 Chloride 107 mmol/L (98-107) 11/03/24 05:09 Carbon Dioxide 29 mmol/L (21-32) 11/03/24 05:09 Anion Gap 6 (3-11) 11/03/24 05:09 BUN 16 mg/dl (6-23) 11/03/24 05:09 Creatinine 0.95 mg/dl (0.6-1.4) 11/03/24 05:09 Est Cr Clr Drug Dosing 110.1 ml/min 11/03/24 05:09 eGFR 89.94 11/03/24 05:09 BUN/Creatinine Ratio 16.8 (10-20) 11/03/24 05:09 Glucose 103 mg/dl (70-99(Fasting)) H 11/03/24 05:09 POC Glucose 109 mg/dl (70-99) H 11/02/24 12:06 Estimat Average Glucose 114 mg/dl 11/03/24 05:09 Hemoglobin A1c 5.6 % (4.5-5.6) 11/03/24 05:09 Calcium 9.3 mg/dl (8.6-10.3) 11/03/24 05:09 Magnesium 2.0 mg/dl (1.7-2.4) 11/03/24 05:09 Total Bilirubin 0.7 mg/dl (0.2-1.0) 11/02/24 12:04 AST 16 U/L (13-39) 11/02/24 12:04 ALT 18 U/L (7-52) 11/02/24 12:04 Alkaline Phosphatase 88 U/L (34-104) 11/02/24 12:04 Troponin I High Sens 5.8 pg/ml (0-20) 11/02/24 12:04 Total Protein 6.4 gm/dl (6.0-8.3) 11/02/24 12:04 Albumin 4.1 gm/dl (3.4-5.0) 11/02/24 12:04 Globulin 2.3 gm/dl (2.5-4.0) L 11/02/24 12:04 Albumin/Globulin Ratio 1.8 (0.9-2) 11/02/24 12:04 Triglycerides 123 mg/dl (0-150) 11/03/24 05:09 Cholesterol 144 mg/dl (0-200) 11/03/24 05:09 LDL Cholesterol, Calc 90 mg/dl 11/03/24 05:09 VLDL Cholesterol, Calc 25 mg/dl (0-30) 11/03/24 05:09 HDL Cholesterol 29 mg/dl 11/03/24 05:09 Cholesterol/HDL Ratio 5.0 (0-5) 11/03/24 05:09 Blood Type A Positive 11/02/24 12:04 Antibody Screen NEGATIVE 11/02/24 12:04 Impressions Chest X-Ray 11/02/24 11:43 XR chest 1V portable CLINICAL HISTORY: neuro deficit, acute stroke suspected COMPARISON STUDY: 04/15/2009 FINDINGS: Single view portable chest is unchanged demonstrating no acute cardiopulmonary process. Mild cardiomegaly and pulmonary vascular congestion are present. There is no focal airspace consolidation or pleural effusion. There is no pneumothorax. IMPRESSION: Stable exam; no acute process ACT 112: Negative or not required by law. Electronically signed by: Karen Hernandez M.D. 11/02/2024 1:[address] 11/02/24 11:43 CT OF THE HEAD WITHOUT CONTRAST CLINICAL HISTORY: neuro deficit, acute stroke suspected COMPARISON STUDY: Head CT April 15, 2024. TECHNIQUE: Helical axial images of the head were obtained without IV contrast. Automated exposure control was utilized for the study. A dose lowering technique was utilized adhering to the principles of ALARA. FINDINGS: No acute intracranial hemorrhage, midline shift or mass effect is present. The ventricular system is unremarkable. The basal cisterns are patent. No extra-axial collections are present. There are no findings to suggest acute dural sinus thrombosis or acute territorial infarct. No significant calvarial abnormalities are present. Visualized portions of the sinuses and mastoid air cells are clear. IMPRESSION: No acute intracranial findings. ACT 112: Negative or not required by law. Electronically signed by: Trevor Christiansen M.D. 11/02/2024 12:16 PM Head CTA 11/02/24 11:43 CTA ANGIOGRAPHY OF THE HEAD CLINICAL HISTORY: neuro deficit, acute stroke suspected COMPARISON STUDY: CTA of the head April 14, 2024. TECHNIQUE: Helical axial images of the head were obtained following uneventful intravenous administration of 112 cc of Optiray. Sagittal and coronal reconstructions were viewed as well as maximal intensity projections on an independent 3-D workstation. Automated exposure control was utilized for the study. A dose lowering technique was utilized adhering to the principles of ALARA. FINDINGS: The bilateral M1, M2, A1 and A2 segments are patent. No vessel cut off is identified within the anterior posterior circulation. There is mild plaque within the bilateral cavernous carotids without stenosis. The right vertebral artery is dominant. As before, the basilar artery is diminutive. This is largely due to persistence of the bilateral posterior cerebral arteries. The posterior cerebral arteries are patent. Jugular system is normal. Basal cisterns are patent. There are no extra axial collections. IMPRESSION: No large vessel occlusion. No intracranial aneurysm. ACT 112: Negative or not required by law. Electronically signed by: Trevor Christiansen M.D. 11/02/2024 12:25 PM Neck CTA 11/02/24 11:43 CT angio neck with con CLINICAL HISTORY: neuro deficit, acute stroke suspected. COMPARISON STUDY: 04/14/2024 and unchanged since the prior examination. TECHNIQUE: Following the IV administration of 112 of Optiray, CT angiogram of the neck was performed from the aortic arch to the skull base. Images are reviewed in the axial, sagittal, and coronal planes. 3-D MIPS images are created and assessed. IV contrast was administered without complication. All measurements were calculated based on NASCET criteria. A dose lowering technique was utilized adhering to the principles of ALARA. CT DOSE: 1995.15 mGy.cm FINDINGS: There is no evidence of occlusive disease are hemodynamically significant stenosis. Calcified plaques within the proximal ICAs are noted bilaterally with no greater than 20% stenosis. The ECAs are patent. Posterior circulation demonstrates right vertebral artery dominance. The posterior circulation including the lower basilar artery is somewhat diminutive IMPRESSION: No change since the prior examination. No evidence of hemodynamically significant stenosis or occlusion. ACT 112: Negative or not required by law. The above report was generated using voice recognition software. It may contain grammatical, syntax or spelling errors. Electronically signed by: Karen Hernandez M.D. 11/02/2024 12:[address] 11/02/24 11:53 CT cervical spine wo con CT DOSE: 1995.15 CLINICAL HISTORY: Ground-level fall; suspected stroke COMPARISON: None TECHNIQUE: Multiple axial CT images of the cervical spine were obtained without contrast. Sagittal and coronal reconstructions were done. A dose lowering technique was utilized adhering to the principles of ALARA. FINDINGS: There is no acute traumatic cervical spine injury identified. There is no fracture or traumatic malalignment. The prevertebral soft tissues are not swollen. The odontoid and atlantoaxial articulation are intact. 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 IMPRESSION: No acute traumatic cervical spine injury. ACT 112: Negative or not required by law. The above report was generated using voice recognition software. It may contain grammatical, syntax or spelling errors. Electronically signed by: Karen Hernandez M.D. 11/02/2024 12:17 PM Brain MRI 11/02/24 14:25 MRI of the brain performed without IV contrast History: Strokelike symptoms Comparison: April 14, 2024 Technique: Sagittal T1-weighted and axial T2-weighted, T2/FLAIR and diffusion-weighted with ADC map images of the brain were obtained without IV contrast. Findings: No evidence for intracranial mass lesion, mass-effect, midline shift, or abnormal extra-axial fluid collection. The ventricles and sulci are within normal limits for age. Mild high signal intensity foci throughout the white matter consistent with sequelae of chronic small vessel ischemic disease. There is a linear area of diffusion restriction about the right paramedian aspect of the ashlee, measuring 18 x 9 mm in the axial plane. Normal intravascular flow voids. Bilateral coloboma. Impression: Acute infarct in the right ashlee Electronically signed by Eric Lambert 11-02-2024 4:50 PM Foot X-Ray 11/03/24 15:35 INDICATION: Foot pain. TECHNIQUE: 3 views of the left foot. COMPARISON: Radiograph from 06/24/2018. FINDINGS: No acute fracture or dislocation. No lytic or blastic bony lesions seen. No evidence of cortical erosion. Mild to moderate first metatarsophalangeal joint space loss. Small spur at the Achilles insertion on the calcaneus. Soft tissue swelling most pronounced in the first digit. IMPRESSION: Soft tissue swelling without acute osseous abnormality evident. Electronically signed by Sundar Mesa 11-03-2024 4:[address] cervical spine wo con CT DOSE: 1995.15 CLINICAL HISTORY: Ground-level fall; suspected stroke COMPARISON: None TECHNIQUE: Multiple axial CT images of the cervical spine were obtained without contrast. Sagittal and coronal reconstructions were done. A dose lowering technique was utilized adhering to the principles of ALARA. FINDINGS: There is no acute traumatic cervical spine injury identified. There is no fracture or traumatic malalignment. The prevertebral soft tissues are not swollen. The odontoid and atlantoaxial articulation are intact. 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 IMPRESSION: No acute traumatic cervical spine injury. ACT 112: Negative or not required by law. Pending Results Patient Have Any Pending Studies at Discharge: No Discharge Instructions Given to Patient (Per Discharging Provider) Please refer to accompanying hospital discharge summary for full details. Total Time Total Time Spent Total Time Spent (In Minutes): 50 minutes
[2024-11-06] MEDS: ENOXAPARIN INJ 40 MG/0.4 ML SYR SQ SCH (15:33)
[2024-11-06] MEDS: amLODIPine BESYLATE 5 MG TAB PO ONE (15:33)
== END 2024-11-06 16:13 | DRG 66 ==
LOC: ED 11:48 → SUATTDRO 12:57 → 2S 12:57